=== PATIENT | female | born 1930 | race Caucasian/White ===

== ENCOUNTER 2016-12-29 02:58 | Inpatient (IN) | payer MEDICARE ==
[~2016-12-29] VITALS: Ht 162.6 cm; Wt 92.5 kg
[2016-12-29] VITALS (7 sets, daily range): BP systolic 85–125; BP diastolic 42–67; PULSE 102
[~2016-12-29 02:58] MED LIST: BISA10SU4 PR; CALC1CAP31 PO; COUM1TAB19 PO; COUM2TAB10 PO; DIGO0.12 PO; EPOG3000 IV; FERR325T3 PO; FLEEENE4 PR; KAYE1POW5 PO; KLOR1POW2 PO; LOPR1TAB7 PO; MILKSUS PO; SYNT25TA PO; TORS20TA2 PO; TYLE325T5 PO; VENO20IN IV; WARF-20 PO; WARF-58 PO; XALA0.002 OU
[2016-12-29] MEDS ORDERED: DEXTROSE 50% 50 ML SYRINGE IV PRN (03:30)
[2016-12-29] MEDS ORDERED: GLUCAGON FOR INJ 1 MG VIAL (J1610) SC PRN (03:30)
[2016-12-29] MEDS ORDERED: GLUCOSE 4 GM CHEW TABLET PO PRN (03:30)
[2016-12-29] MEDS ORDERED: METOPROLOL 5 MG/5 ML VIAL IV STA (03:37)
[2016-12-29] MEDS ORDERED: DIGOXIN INJ 0.5 MG/2 ML AMP (J1160) IV STA (03:39)
[2016-12-29] MEDS ORDERED: MORPHINE 2 MG/ML 1ML SYRINGE IV ONE (03:45)
[2016-12-29 03:55] LABS: ADD MORPHOLOGY? YES; BASO % 0.5 % (0.0-1.0); EOS # 0.2 K/mm3 (0.0-0.50); EOS % 2.3 % (0.0-3.0); LARGE UNSTAINED CELL # 0.1 K/mm3 (0.0-0.4); LARGE UNSTAINED CELL % 1.7 % (0.0-4.0); LYMPH # 1.2 K/mm3 (1.5-4.5); LYMPH % 16.4 % (24.0-44.0); MEAN CORPUSCULAR HEMOGLOBIN 35.4 pg (27.0-33.0); MEAN CORPUSCULAR HGB CONC 31.9 g/dl (32.0-36.5); MEAN CORPUSCULAR VOLUME 111.1 fl (80.0-96.0); MONO # 0.4 K/mm3 (0.0-0.8); MONO % 5.5 % (0.0-5.0); NEUTROPHILS % 73.8 % (36.0-66.0); PLATELET COUNT, AUTOMATED 191 k/mm3 (150-450); WHITE BLOOD COUNT 6.8 K/mm3 (4.0-10.0)
[2016-12-29 03:59] LABS: IONIZED CALCIUM 4.2 MG/DL (4.5-5.3)
[2016-12-29 04:03] LABS: INR 1.08
[2016-12-29 04:19] LABS: ALBUMIN 3.1 GM/DL (3.2-5.2); ALBUMIN/GLOBULIN RATIO 0.78 (1.00-1.93); BILIRUBIN,TOTAL 0.5 MG/DL (0.2-1.0); CALCIUM LEVEL 8.6 MG/DL (8.8-10.2); CREATININE FOR GFR 3.16 MG/DL (0.55-1.02); GLOMERULAR FILTRATION RATE 14.8 (>32); MAGNESIUM LEVEL 2.1 MG/DL (1.8-2.4); PHOSPHORUS LEVEL 3.4 MG/DL (2.5-4.9); POTASSIUM SERUM 4.1 MEQ/L (3.5-5.1); TOTAL PROTEIN 7.1 GM/DL (6.4-8.2)
[2016-12-29 04:28] LABS: DIGOXIN LEVEL 0.7 NG/ML (0.5-2.0)
[2016-12-29] MEDS ORDERED: TRAZ50TA4 PO (04:37)
[2016-12-29] MEDS ORDERED: KION15SU PO (04:37)
[2016-12-29] MEDS ORDERED: CINA30TA PO (04:37)
[2016-12-29] MEDS ORDERED: MIDO10TA PO (04:37)
[2016-12-29] MEDS ORDERED: CALC1CAP PO (04:37)
[2016-12-29] MEDS ORDERED: GABA-279 PO (04:37)
[2016-12-29] MEDS ORDERED: ACETAMINOPHEN 325 MG TAB PO PRN (04:45)
[2016-12-29] MEDS ORDERED: BISACODYL 10 MG SUPP PR PRN (04:45)
[2016-12-29 05:00] LABS: FREE T4 1.02 NG/DL (0.76-1.46)
[2016-12-29] MEDS: METOPROLOL TART 25 MG TABLET PO SCH ×3 (06:00→17:03)
[2016-12-29] MEDS: LEVOTHYROXINE 0.025 MG TAB (25 MCG) PO SCH (06:05)
[2016-12-29 06:10] LABS: ABG BASE EXCESS 6.9 (-2.0-2.0); ABG HCO3 30.9 MEQ/L (22.0-26.0); ABG PARTIAL PRESSURE CO2 41.7 mmHg (35.0-45.0); ABG PARTIAL PRESSURE O2 142.3 mmHg (75.0-100.0); ABG STANDARD HCO3 30.8 MEQ/L (22.0-26.0); ABG TOTAL CO2 32.2 MEQ/L (23.0-31.0); ABG pH (ARTERIAL) 7.488 UNITS (7.350-7.450)
--- NOTE | 2016-12-29 06:47 | HPEPDOC ---
General Date of Admission December 29, 2016 at 04:01 Primary Care Physician: Yasmin Vides MD [facility] Attending Physician: MARY WOODRUFF MD Chief Complaint The patient is a 86-year-old female admitted with a reason for visit of Chf Exacerbation. Source: Patient, RN notes reviewed, Old records Exam Limitations: No limitations Timing/Duration: Week(s) History of Present Illness Ms. Mccrary is an 86-year-old female who presents to [facility]'s emergency Department from [facility] with worsening renal function. Past medical history significant for end-stage renal disease on hemodialysis, diabetes mellitus, congestive heart failure, atrial fibrillation, hypothyroidism , anemia, urinary incontinence, gout, glaucoma, sensorineural hearing loss, history of Escherichia coli urinary tract infections, history of colonic polyps. Patient reports that she has had decreased urine output for the last month. She states that she attempted to get into her primary care provider's office, but was unable to do so. She denies other urinary symptoms, shortness of breath, chest pain. Reports pain in her legs and hips with the pain being more on the left than the right. She's noticed this over the last 2-3 days. Denies trauma. States that it hurts to move. States that she's never had this pain before. Admits to tingling in her fingers, feeling warm from her knees down to her ankles bilaterally, runny nose, nonproductive cough, nausea, neck pain, weight gain, weakness, and dizziness with standing. Besides positive review of systems as above all other review of systems are negative. Patient presented to [facility] with pelvic pain and oliguria. She received imaging and pain medication, but secondary to her worsening renal function she was transferred [facility]. Hospitalist service was consulted and patient was admitted for further medical management. Home Medications Scheduled Calcium Acetate (Calcium Acetate) 667 Mg Cap, 667 MG PO TID, (Reported) OBTAINED FROM EXTERNAL MED HISTORY Cinacalcet Hydrochloride (Sensipar) 30 Mg Tab, 15 MG PO DAILY, (Reported) OBTAINED FROM EXTERNAL MED HISTORY Ferrous Sulfate (Ferrous Sulfate) 325 Mg Tab, 324 MG PO DAILY, (Reported) OBTAINED FROM EXTERNAL MED HISTORY Gabapentin (Gabapentin) 100 Mg Cap, 100 MG PO TID, (Reported) OBTAINED FROM EXTERNAL MED HISTORY Latanoprost (Xalatan) 0.005 % Carol, 1 DROP OU QPM, (Reported) OBTAINED FROM EXTERNAL MED HISTORY Levothyroxine Sodium (Synthroid) 25 Mcg Tab, 25 MCG PO QAM, (Reported) OBTAINED FROM EXTERNAL MED HISTORY Midodrine HCl (Midodrine HCl) 10 Mg Tab, 10 MG PO BID, (Reported) OBTAINED FROM EXTERNAL MED HISTORY Sodium Polystyrene Sulfonate (Kionex) 15 Gm/60 Ml Irina, 15 GM PO BID, (Reported) OBTAINED FROM EXTERNAL MED HISTORY Trazodone HCl (Trazodone HCl) 50 Mg Tab, 50 MG PO QHS, (Reported) OBTAINED FROM EXTERNAL MED HISTORY Scheduled PRN Acetaminophen (Tylenol) 325 Mg Tab, 650 MG PO Q6HP PRN for PAIN OR TEMP > 101, ( Reported) Bisacodyl (Bisacodyl) 10 Mg Sup, 10 MG KS Q3DP PRN for CONSTIPATION, (Reported) Miscellaneous Medications Epoetin Wan (Epogen) 3,000 Unit/Ml Inj, 3,000 UNIT IV, (Reported) every dialysis by dialysis Iron Sucrose (Iron Oxide Sacch (Venofer) 20 Mg/Ml Inj, 100 MG IV, (Reported) on hemodialysis days x 8 more doses Allergies Coded Allergies: Cefadroxil (Verified Allergy, Intermediate, RASH, 12/29/16) Penicillins (Verified Allergy, Intermediate, RASH, 12/29/16) Ramipril (Verified Allergy, Unknown, 12/29/16) Past Medical History Medical History 1. End-stage renal disease on hemodialysis 2. Diabetes mellitus 3. Atrial fibrillation 4. Hypothyroidism 5. Gout 6. Urinary incontinence 7. Glaucoma 8. Sensorineural hearing loss 9. Anemia 10. History of Escherichia coli urinary tract infection 11. History of colonic polyps 12. Breast cancer Surgical History 1. Right mastectomy 2. Bilateral cataracts 3. Right arteriovenous fistula 4. Dilation and curettage 5. Hysterectomy 6. Colon resection 7. 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 Dyspnea, Edema, Lt Headedness Gastrointestinal: Reports: Nausea, Denies: Vomiting, Abdominal Pain, Diarrhea, Constipation, Melena, Hematochezia Genitourinary: Reports: Other Symptoms (oliguric), Denies: Dysuria, Frequency, Incontinence, Hematuria Hematologic: Denies: Bruising, Enlarged Lymph Nodes Endocrine: Reports: Other Endocrine Sx (weight gain) Musculoskeletal: Reports: Neck Pain, Denies: Back Pain, Joint Pain, Muscle Pain Neurological: Reports: Weakness, Denies: Numbness Physical Examination General Exam: Positive: Alert, Cooperative, No Acute Distress Eye Exam: Positive: PERRLA, Conjunctiva & lids normal, EOMI, Negative: Sclera icteric, Ptosis ENT Exam: Positive: Atraumatic, Mucous membr. moist/pink, Pharynx Normal, Tongue Midline, Other ENT (edentulous), Negative: Pharyngeal Edema, Nares Patent Neck Exam: Positive: Supple, Negative: JVD, thyromegaly, Lymphadenopathy Chest Exam: Positive: Clear to auscultation, Normal air movement Heart Exam: Positive: Tachycardic, Irregular Rhythm, Normal S1, Normal S2, Negative: Gallops, Murmurs, Rubs Telemetry: Positive: Atrial fibrillation, Tachycardia Abdomen Exam: Positive: Normal bowel sounds, Soft, Negative: Tenderness, Hepatospenomegaly, Mass Extremity Exam: Positive: Normal pulses (irregularly irregular), Negative: Clubbing, Cyanosis, Edema, Tenderness, Swelling Skin Exam: Positive: Nl turgor and temperature, Negative: Rash, Lesion Neuro Exam: Positive: Normal Speech, Strength at 5/5 X4 ext, Cranial Nerves 3- 12 NL Other physical findings Chest x-ray Report pending Vital Signs Vital Signs Date Time Temp Pulse Resp B/P (MAP) Pulse Ox O2 Delivery O2 Flow Rate FiO2 12/29/16 05:11 98.3 102 20 108/55 (72) 97 Room Air Height (in): 64 Weight (kg): 89 BMI (kg): 33.7 Laboratory Data Labs 24H Laboratory Tests 2 12/29/16 03:43: White Blood Count 6.8, Red Blood Count 2.96L, Hemoglobin 10.5L, Hematocrit 32.9L , Mean Corpuscular Volume 111.1H, Mean Corpuscular Hemoglobin 35.4H, Mean Corpuscular Hemoglobin Concent 31.9L, Red Cell Distribution Width 13.0, Platelet Count 191, Neutrophils (%) (Auto) 73.8H, Lymphocytes (%) (Auto) 16.4L, Monocytes (%) (Auto) 5.5H, Eosinophils (%) (Auto) 2.3, Basophils (%) (Auto) 0.5 , Neutrophils # (Auto) 5.0, Lymphocytes # (Auto) 1.2L, Monocytes # (Auto) 0.4, Eosinophils # (Auto) 0.2, Basophils # (Auto) 0.0, Large Unclassified Cells % 1.7 , Large Unclassified Cells # 0.1, Platelet Estimate NORMAL, Basophilic Stippling 1+, Macrocytosis 2+, Prothrombin Time 14.1, Prothromb Time International Ratio 1.08, Activated Partial Thromboplast Time 36.1, Anion Gap 10 , Glomerular Filtration Rate 14.8L, Estimated Mean Plasma Glucose 103, Hemoglobin A1c 5.2, Blood Urea Nitrogen 23H, Creatinine 3.16H, Sodium Level 137 , Potassium Level 4.1, Chloride Level 95L, Carbon Dioxide Level 32, Calcium Level 8.6L, Phosphorus Level 3.4, Aspartate Amino Transf (AST/SGOT) 26, Alanine Aminotransferase (ALT/SGPT) 25, Total Creatine Kinase 146, Alkaline Phosphatase 64, Total Bilirubin 0.5, Total Protein 7.1, Albumin 3.1L, Whole Blood Ionized Calcium 4.2L, Magnesium Level 2.1, Creatine Kinase MB 1.0, Creatine Kinase MB Relative Index 0.68, Troponin I 0.03, B-Type Natriuretic Peptide 866H, Albumin/ Globulin Ratio 0.78L, Thyroid Stimulating Hormone (TSH) 4.510H, Free Thyroxine 1.02, Digoxin Level 0.7 CBC/BMP Laboratory Tests 12/29/16 03:43 Red Blood Count 2.96 L, Mean Corpuscular Volume 111.1 H, Mean Corpuscular Hemoglobin 35.4 H, Mean Corpuscular Hemoglobin Concent 31.9 L, Red Cell Distribution Width 13.0, Neutrophils (%) (Auto) 73.8 H, Lymphocytes (%) (Auto) 16.4 L, Monocytes (%) (Auto) 5.5 H, Eosinophils (%) (Auto) 2.3, Basophils (%) ( Auto) 0.5, Neutrophils # (Auto) 5.0, Lymphocytes # (Auto) 1.2 L, Monocytes # ( Auto) 0.4, Eosinophils # (Auto) 0.2, Basophils # (Auto) 0.0, Calcium Level 8.6 L , Phosphorus Level 3.4, Aspartate Amino Transf (AST/SGOT) 26, Alanine Aminotransferase (ALT/SGPT) 25, Total Creatine Kinase 146, Alkaline Phosphatase 64, Total Bilirubin 0.5, Total Protein 7.1, Albumin 3.1 L Assessment/Plan Ms. Mccrary is an 86-year-old female with a past medical history significant for end-stage renal disease on hemodialysis, diabetes mellitus, congestive heart failure, atrial fibrillation, hypothyroidism, anemia, urinary incontinence, gout, glaucoma, sensorineural hearing loss, history of Escherichia coli urinary tract infections, history of colonic polyps who presents with worsening renal function in light of end-stage renal disease. Plan / VTE VTE Prophylaxis Ordered?: Yes (warfarin) Plan / Urinary Catheter Reason for insertion/continuin: Critical Pt monitoring Plan Plan End-stage renal disease Patient transferred from [facility] secondary to worsening renal function. Creatinine on today's admission. She appears improved compared to prior encounters. Nephrology is consulted. Continue phosphorus and vitamin D level. Urinary catheter is in place. Urinalysis obtained. Monitor strict I/Os. Continue patient on calcium supplementation. Continue patient on Sensipar. Congestive heart failure Obtaining ABG shows metabolic alkalosis with respiratory compensation. BMP is 866. Obtaining echocardiogram. Atrial fibrillation with rapid ventricular response Obtained EKG. Continue metoprolol. Added digoxin. Continued warfarin. Diabetes mellitus Sliding scale insulin with hypoglycemic protocol and blood glucose fingersticks before meals and at bedtime. Hypothyroidism Continue current home medication regimen. Anemia Continue patient on ferrous sulfate. Neuropathy Continue patient on gabapentin. Glaucoma Continue patient on latanoprost. Insomnia Continue patient on trazodone. Disposition Admit to: Progressive care unit Anticipated hospitalization: 2 nights Attending: Dr. Brenner Consultation: Nephrology Diet: Continue Current (2 g sodium) Activity: Continue Current (out of bed and encourage ambulation with assistance ) Diagnostics: Check Labs, Repeat Labs in AM Anticipated Discharge: Home ALY MADISON December 29, 2016 06:47
--- NOTE | 2016-12-29 07:26 | ECGEPIP ---
Stationary ECG Study 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
--- NOTE | 2016-12-29 07:33 | REP ---
Clinical: Shortness of breath. Comparison: None. Findings: A stent is identified extending from the right axillary region through the subclavian and brachiocephalic vein to the confluence of the SVC. Evidence for right axillary node dissection. Mediastinum and cardiac silhouette are grossly normal for portable technique. Left lower lobe opacity cannot be excluded. No pneumothorax. Skeletal structures intact. Impression: Postoperative changes. Cannot exclude left lower lobe opacity. Signed by Ravi Esteban MD 12/29/2016 07:24 A
[2016-12-29] MEDS ORDERED: CALCIUM ACETATE 667 MG GELCAP PO SCH (09:00)
[2016-12-29] MEDS ORDERED: DIGOXIN 0.125 MG TAB PO SCH (09:00)
[2016-12-29] MEDS: HumaLOG INSULIN (NovoLOG) PER UNIT SC SCH ×4 (09:57→20:55)
[2016-12-29] MEDS: GABAPENTIN 100 MG CAP PO SCH ×3 (09:58→20:53)
[2016-12-29] MEDS: CINACALCET 30 MG TAB (SENSIPAR) PO SCH (09:58)
[2016-12-29] MEDS: FERROUS SULFATE 325MG TAB PO SCH (09:58)
[2016-12-29] MEDS: MIDODRINE 5 MG TAB PO SCH ×2 (09:59→15:49)
[2016-12-29] MEDS: CALCIUM ACETATE 667 MG GELCAP PO SCH ×2 (15:42→17:03)
[2016-12-29] MEDS: WARFARIN SOD 3 MG TAB PO SCH (15:48)
--- NOTE | 2016-12-29 19:07 | REP ---
Clinical: Left hip pain. Technique: AP and frog lateral views of the left hip. Findings: Moderate arthritic degenerative changes include joint space narrowing, osteopenia with subchondral sclerosis and heterogeneity as well as spurring/early osteophyte formation along the acetabular roof and rim. No acute fracture dislocation. Impression: Moderate arthritic degenerative changes. Signed by Ravi Esteban MD 12/29/2016 06:59 P
--- NOTE | 2016-12-29 20:04 | CR ---
DATE OF CONSULTATION: 12/29/2016 REQUESTING PHYSICIAN: Dr. Dilcia Brenner. REASON FOR CONSULTATION: Management of end-stage renal disease and hemodialysis. CHIEF COMPLAINT: The patient was transferred from [facility] last night and there, she had presented with left leg pain. HISTORY OF PRESENT ILLNESS: Fidelina Mccrary is an 86-year-old female with past medical history of end-stage renal disease on hemodialysis every Saturday, Saturday, Saturday. She was dialyzed yesterday but after hemodialysis, she felt severe pain in the left leg. She has been feeling this pain for the last 2-3 days. The pain was almost 8/10 in intensity. It started in the left hip and was going through the left leg. She presented in the emergency room. Here, her pain was optimized but she was also found to have pulmonary congestion on the x-ray, and because of the possibility of fluid overload and history of end-stage renal disease, the patient was transferred to [facility] for further help in the management of this patient with history of end-stage renal disease which is dependent upon hemodialysis. I saw the patient today morning. The patient was not in any respiratory distress. She is just complaining of pain in the left hip. PAST MEDICAL HISTORY: Past medical history of end-stage renal disease on hemodialysis every Saturday, Saturday, Saturday, diabetes mellitus type 2, hypothyroidism, atrial fibrillation, gout secondary to end-stage renal disease, history of hearing loss, anemia secondary to end-stage renal disease, urinary tract infection (UTI) in the past, and history of breast cancer. PAST SURGICAL HISTORY: 1. Status post right mastectomy. 2. Status post bilateral cataract surgeries. 3. Status post right arm arteriovenous (AV) fistula placement. 4. Status post hysterectomy. 5. Status post colon resection. ALLERGIES: The patient is allergic to PENICILLINS, CEPHALOSPORINS, and RAMIPRIL. FAMILY HISTORY: No significant family history of end-stage renal disease requiring hemodialysis. There is positive family history of heart disease in parents. SOCIAL HISTORY: The patient denies any smoking, alcohol abuse or illicit drug abuse. She lives independently and she is able to perform the activities of daily life herself, and she walks with a walker. REVIEW OF SYSTEMS: CONSTITUTIONAL: The patient denies any fevers or chills. She does report some weakness. EYES: The patient denies any blurry vision or double vision. ENT: The patient denies any dysphagia, odynophagia or ear discharge. CARDIOVASCULAR: She denies any chest pain, palpitations. RESPIRATORY: She denies any cough, wheezing or shortness of breath. GASTROINTESTINAL (GI): She denies any pain abdomen, constipation, or diarrhea. GENITOURINARY: The patient denies any dysuria or hematuria. SKIN: She denies any rashes or ulcers. HEMATOLOGY/ONCOLOGY: The patient reports history of anemia secondary to end-stage renal disease, and she reports history of breast cancer. ENDOCRINE: She reports history of secondary hyperparathyroidism and hypothyroidism. MUSCULOSKELETAL: The patient reports left hip pain and left leg pain. 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 PHYSICAL EXAMINATION: GENERAL: The patient is awake, alert, and oriented times three, lying in the bed in no apparent distress. VITAL SIGNS: Temperature is 96.6 degrees Fahrenheit, blood pressure 120/67, pulse is 67, respiratory rate of 18, saturating 96% on room air. Intake and output: The urine output is not recorded. Weight in the bed scale is 89 kg. HEAD/NECK: Extraocular muscles intact. Pupils equal, round, and reactive to light. Mucous membranes are moist. Neck is supple. There is no jugular venous distention (JVD). CARDIOVASCULAR: S1, S2, regular rate. No murmur, rub, or gallop. RESPIRATORY: Chest is clear to auscultation bilaterally. Bilateral equal air entry. No rales or rhonchi. ABDOMEN: Soft. Positive bowel sounds. Nontender. No ascites. No organomegaly. EXTREMITIES: No clubbing or cyanosis. Pulses are 2+. There is decreased range of movement of the left leg because of pain. CENTRAL NERVOUS SYSTEM (SLAT BASKET MAKER HELPER MACHINE): No focal neurological deficit. Power is 5/5 in bilateral upper extremities and right leg. The patient is unable to move left leg because of pain. SKIN: No rashes or ulcers. LABORATORY DATA: CBC showed a WBC of 6.8, hemoglobin 10.5, platelets of 191. BMP showed sodium 137, potassium 4.1, chloride 95, bicarbonate 32, BUN 23, creatinine 3.1. Ionized calcium is 4.2. BNP is 866. IMAGING: A chest x-ray done today morning showed normal mediastinal and cardiac silhouettes. Left lower lobe opacity. Otherwise there was no evidence of pulmonary venous congestion. CURRENT INPATIENT MEDICATIONS Her medications include: - Tylenol as needed - Dulcolax as needed - PhosLo one tablet with meals - Sensipar 15 mg by mouth daily - digoxin 0.125 mg by mouth daily - ferrous sulfate 325 mg by mouth daily - Neurontin 100 mg by mouth three times a day - insulin sliding scale - levothyroxine 25 mcg by mouth daily - metoprolol 25 mg by mouth every six hours - midodrine 10 mg by mouth twice a day - morphine sulfate 2 mg intravenous (IV) one dose was given - trazodone 50 mg at bedtime - warfarin 3 mg by mouth daily ASSESSMENT: An 86-year-old female with past medical history of end-stage renal disease on hemodialysis every Saturday, Saturday, Saturday, this time comes to [facility] from [facility] because of left hip pain and shortness of breath, along with atrial fibrillation with rapid ventricular rate (RVR). PLAN: 1. End-stage renal disease on hemodialysis. The patient was dialyzed yesterday. She got ultrafiltration done. Clinically she is not in fluid overload. She is not short of breath. No urgent need of hemodialysis today. Next hemodialysis session will be on Saturday. 2. Atrial fibrillation with rapid ventricular rate. The patient was given metoprolol IV. She was started on oral metoprolol as well. Primary team has also added digoxin. Continue the warfarin as per primary team. Heart rate is controlled at this time. 3. Hypothyroidism. Continue current dose of levothyroxine as per home regimen. 4. Secondary hyperparathyroidism. Continue Sensipar 15 mg by mouth daily. 5. Chronic kidney disease, mineral bone disease. Continue PhosLo one tablet by mouth with meals for hyperphosphatemia. 6. Left hip pain. The patient is getting gabapentin. She got a dose of morphine as needed as well. 7. Chronic hypotension. Continue current dose of midodrine 10 mg by mouth twice a day, and if patient remains hypotensive, then metoprolol dose will need to be stopped. Thank you for involving us in the care of this patient. We shall be happy to follow the patient along with you tomorrow morning.
[2016-12-29] MEDS: LATANOPROST 0.005% OPHTH SOLN 2.5 ML OU SCH (20:53)
[2016-12-29] MEDS: traZODone 50 MG TAB PO SCH (20:53)
[2016-12-30] VITALS: BP 83/40
[2016-12-30 00:23] VITALS: BP 98/43
[2016-12-30 04:00] VITALS: BP 80/49
[2016-12-30 05:35] LABS: INR 1.22
[2016-12-30 05:40] LABS: BASO % 0.5 % (0.0-1.0); EOS # 0.2 K/mm3 (0.0-0.50); EOS % 3.3 % (0.0-3.0); LARGE UNSTAINED CELL # 0.2 K/mm3 (0.0-0.4); LARGE UNSTAINED CELL % 2.9 % (0.0-4.0); LYMPH # 1.6 K/mm3 (1.5-4.5); LYMPH % 23.9 % (24.0-44.0); MEAN CORPUSCULAR HEMOGLOBIN 35.9 pg (27.0-33.0); MEAN CORPUSCULAR HGB CONC 32.3 g/dl (32.0-36.5); MEAN CORPUSCULAR VOLUME 111.1 fl (80.0-96.0); MONO # 0.4 K/mm3 (0.0-0.8); MONO % 6.7 % (0.0-5.0); NEUTROPHILS # 3.7 K/mm3 (1.8-7.7); NEUTROPHILS % 62.8 % (36.0-66.0); PLATELET COUNT, AUTOMATED 190 k/mm3 (150-450); RED CELL DISTRIBUTION WIDTH 12.9 % (11.5-14.5); WHITE BLOOD COUNT 5.8 K/mm3 (4.0-10.0)
[2016-12-30 06:00] VITALS: BP 116/70
[2016-12-30 06:05] LABS: CALCIUM LEVEL 8.4 MG/DL (8.8-10.2); DIGOXIN LEVEL 0.9 NG/ML (0.5-2.0); GLOMERULAR FILTRATION RATE 8.9 (>32); POTASSIUM SERUM 4.1 MEQ/L (3.5-5.1)
[2016-12-30] MEDS: LEVOTHYROXINE 0.025 MG TAB (25 MCG) PO SCH (06:28)
[2016-12-30 06:29] LABS: CREATININE FOR GFR 4.9 MG/DL (0.55-1.02)
--- NOTE | 2016-12-30 07:13 | ECHO ---
DATE OF PROCEDURE: 12/29/2016 DATE OF : 1930 AGE: 86 GENDER: Female HEIGHT: 64 inches WEIGHT: 187 pounds BODY SURFACE AREA: 1.9 meters squared INPATIENT: Progressive care unit (PCU), room 3222 REFERRING PHYSICIAN: Dr. Adelita Nunez INDICATION: Congestive heart failure (CHF). MEASUREMENTS: 2D measurements: RV: 4.8 cm LV: 4.3 cm Septum: 1.0 cm Posterior wall: 1.0 cm Aortic root: 3.3 cm LA: 4.6 cm LVEF: 65% Doppler measurements: AV: 1.8 meters per second LVOT: 1.1 meters per second LVOT diameter: 2.1 cm MV-E: 130 Early mitral deceleration time: 187 milliseconds E prime: 8.3 E/E prime ratio: 15 PV: 0.67 meters per second Pulmonary artery acceleration time: 74 milliseconds RVSP: 71 mmHg IVC: 2.5 cm COMMENTS: Underlying atrial fibrillation with fairly controlled ventricular response. Mild to moderately dilated left atrium but normal left ventricular size. At least moderately dilated right heart chambers. LV wall thickness was normal. On real-time imaging from the parasternal and apical projections, there appeared to be an isolated septal wall motion abnormality but other left ventricular barajas were hyperkinetic. Mild mitral annular calcification with normal appearing leaflets and leaflet excursion with no posterior systolic buckling. Three equal size aortic cusps with mild to moderately thickened cusp edges but adequate cusp separation. Normal aortic root size. No separate intracardiac mass or pericardial effusion. Color flow Doppler study taken from the parasternal and apical projections showed moderate mitral and severe tricuspid but no aortic insufficiency. Guided continuous wave Doppler of her aortic valve showed a normal peak systolic velocity against LV outflow tract obstruction. Pulsed and continuous wave Doppler of her LV inflow tract taken from the apical four-chamber projection showed normal diastolic filling velocities against mitral stenosis. There was only early diastolic/passive filling as we would expect with atrial fibrillation. Her current estimated mean left atrial pressure was mildly elevated at approximately 18 mmHg. Pulsed and continuous wave Doppler of her pulmonary trunk showed a normal peak systolic velocity against RV outflow tract obstruction, but her pulmonary artery acceleration time was significantly abbreviated consistent with an elevated pulmonary vascular resistance. Guided continuous wave Doppler of her tricuspid valve allowed our estimation of her right ventricular systolic pressure (severely increased). Her inferior vena cava was prominently dilated with virtually absent respiratory collapse in keeping with an elevated central venous pressure of at least 20 mmHg - right heart failure. CONCLUSIONS: Normal left ventricular size and wall thickness with subtle septal wall motion abnormality due to right ventricular pressure overload. Preserved global left ventricular systolic function. Mild-moderately dilated left atrium with currently estimated mean left atrial pressure mildly increased. Moderately dilated right heart chambers with hypokinetic right ventricle and Doppler evidence of severe pulmonary hypertension. Moderately dilated IVC with virtually absent respiratory collapse consistent with elevated central venous pressure and right heart failure. Aortic valvular sclerosis without functional abnormality. Mitral annular calcification with moderate insufficiency. Normal appearing tricuspid valve with severe insufficiency.
[2016-12-30] MEDS: HumaLOG INSULIN (NovoLOG) PER UNIT SC SCH ×4 (07:30→21:00)
[2016-12-30] MEDS: MIDODRINE 5 MG TAB PO SCH ×2 (08:00→13:35)
[2016-12-30] MEDS: CALCIUM ACETATE 667 MG GELCAP PO SCH ×3 (08:00→17:21)
[2016-12-30] MEDS: GABAPENTIN 100 MG CAP PO SCH ×3 (08:48→23:03)
[2016-12-30] MEDS: ACETAMINOPHEN TAB 650MG DOSE (2X325MG) PO PRN ×2 (08:48→17:21)
[2016-12-30] MEDS: FERROUS SULFATE 325MG TAB PO SCH (08:48)
[2016-12-30] MEDS: CINACALCET 30 MG TAB (SENSIPAR) PO SCH (08:48)
[2016-12-30 14:00] VITALS: BP 104/59
--- NOTE | 2016-12-30 15:24 | IPN ---
DATE: 12/30/2016 SUBJECTIVE: Today, the patient complained of continued pain in her left hip but no other changes. She denies chest pain, shortness of breath. OBJECTIVE: VITAL SIGNS: Temperature 97.7, pulse 79, irregularly irregular, respiratory rate 20, blood pressure 116/70, oxygen saturation 92% on room air. GENERAL: She is an elderly female sitting in a recliner, reading the newspaper. She is in no distress. HEENT: Cranial nerves II-XII grossly intact. No appreciable elevation of CVP. CARDIOVASCULAR EXAM: S1, S2 irregularly irregular. RESPIRATORY EXAM: Clear without appreciable rales. ABDOMINAL EXAM: Obese. EXTREMITIES: No clubbing, cyanosis, or edema. She has eversion of the left foot. LABORATORY STUDIES: WBC 5.8, hemoglobin 10.0, MCV 111.1, platelet count 190. Chemistry panel: Sodium 134, potassium 4.1, chloride 94, bicarbonate 29, BUN 40, creatinine 4.9. IMAGING: The patient had hip x-rays that revealed moderate arthritic degenerative changes. ASSESSMENT AND PLAN: This is an 86-year-old female with left hip pain. Problems: 1. Left hip pain. No acute fractures but osteoarthritis on the plain film. Given that this is her primary complaint at this time, I will have her seen by orthopedic surgery. I will have her seen and evaluated by physical therapy. Please note, the patient is receiving gabapentin and morphine as needed. 2. End-stage renal disease, on hemodialysis. The patient is not fluid overloaded and not short of breath. I agree with Dr. Morales from Nephrology there is no indication for hemodialysis at this time. Depending on orthopedic surgery's recommendations, she may be able to be discharged first thing tomorrow morning and obtain outpatient hemodialysis. Please note, the patient is on PhosLo. 3. Atrial fibrillation with rapid ventricular response; it is atrial fibrillation. She has reportedly been noncompliant with Coumadin, which her international normalized ratio (INR) is subtherapeutic. She has been started on digoxin, restarted on Coumadin. At the present time, she is not requiring any further agents for rate control. 4. Hypothyroidism. She is on levothyroxine. 5. Secondary hyperparathyroidism. She is on Sensipar. 6. Chronic hypotension. The patient is on her home midodrine. 7. Iron deficiency anemia. The patient is continued on ferrous sulfate. 8. Type 2 diabetes. The patient is on sliding scale insulin. DISPOSITION: Await recommendations from orthopedic surgery and physical therapy. If cleared by both of services, she is likely to be discharged early tomorrow morning and obtain outpatient hemodialysis.
--- NOTE | 2016-12-30 16:58 | REP ---
Clinical: Pain. Technique: AP and lateral views of the left knee. Findings: Advanced tricompartmental osteoarthritic degenerative changes include joint space narrowing, subchondral sclerosis, chondrocalcinosis, osteophyte formation and suspected suprapatellar effusion. No acute fracture dislocation. Impression: Advanced tricompartmental osteoarthritic degenerative changes. Signed by Ravi Esteban MD 12/30/2016 04:50 P
[2016-12-30] MEDS: WARFARIN SOD 3 MG TAB PO SCH (17:21)
--- NOTE | 2016-12-30 17:36 | IPN ---
DATE: 12/30/2016 SUBJECTIVE: The patient was seen and examined at the bedside today morning. She denies any chest pain or shortness of breath. She is hemodynamically stable. The patient continues to complain of moderate amount of left hip pain and left leg pain. REVIEW OF SYSTEMS: The patient denies any fevers, chills, rigors, headaches, nausea, vomiting, chest pain, shortness of breath, pain abdomen, constipation, or diarrhea. She continues to complain of left hip pain as mentioned above. Rest of review of systems is negative. OBJECTIVE: VITAL SIGNS: Temperature is 97.3 degrees Fahrenheit. Blood pressure is 116/70, pulse is 80, respiratory rate of 18, saturating 92% on room air. INTAKE AND OUTPUT: Urine output is not recorded. Weight in the bed scale is 92.7 kg. PHYSICAL EXAMINATION: GENERAL: The patient is awake, alert, oriented times three, sitting in the bed in no apparent distress. HEAD/NECK: Extraocular muscles intact. Pupils equal, round, and reactive to light. Neck is supple. There is no jugular venous distention (JVD). CARDIOVASCULAR: S1, S2, regular rate. No murmur, rub, or gallop. RESPIRATORY: Chest is clear to auscultation bilaterally. Bilateral equal air entry. No rales or rhonchi. ABDOMEN: Soft. Positive bowel sounds. Nontender. No ascites. No organomegaly. EXTREMITIES: No clubbing or cyanosis. Pulses are 2+. Decreased range of movement of the left leg because of pain. CENTRAL NERVOUS SYSTEM (LICENSED SOCIAL WORKER): No focal neurological deficit. The patient is oriented times three. SKIN: No rashes or ulcers. LABORATORY DATA: CBC showed WBC 5.8, hemoglobin 10, platelets are 190. BMP shows sodium 134, potassium 4.1, chloride 94, bicarbonate 29, BUN 40, creatinine is 4.9, calcium 8.4. IMAGING: X-ray of the left hip was done yesterday, which showed moderate arthritic degenerative changes. CURRENT MEDICATIONS: The patient's current medications were all reviewed by me. I have changed the digoxin dose to 0.0625 mg by mouth every 48 hours. Metoprolol has been stopped because the patient was becoming hypotensive. There is no other change in the medications today. ASSESSMENT: An 86-year-old female with past medical history of end-stage renal disease on hemodialysis every Saturday, Saturday, Saturday, admitted this time because of left hip pain, shortness of breath, and atrial fibrillation with rapid ventricular rate (RVR). PLAN: 1. End-stage renal disease on hemodialysis. The patient's regular dialysis day is Saturday. She will be dialyzed according to her regular schedule tomorrow. No urgent need of hemodialysis today. 2. Atrial fibrillation with rapid ventricular rate. The patient was started on metoprolol and digoxin. Because of her renal failure, I have changed the digoxin dose to 0.0625 mg by mouth every 48 hours. I have stopped the metoprolol because the patient has a history of hypotension and blood pressure was dropping. 3. Chronic hypotension. Continue current dose of midodrine 10 mg by mouth twice a day. 4. Hypothyroidism. Continue home dose of levothyroxine.
[2016-12-30 22:00] VITALS: BP 92/50
[2016-12-30] MEDS: LATANOPROST 0.005% OPHTH SOLN 2.5 ML OU SCH (23:03)
[2016-12-30] MEDS: traZODone 50 MG TAB PO SCH (23:04)
[2016-12-31 03:00] VITALS: BP 110/65
[2016-12-31 06:00] VITALS: BP 132/67
[2016-12-31 06:28] LABS: BASO % 0.4 % (0.0-1.0); EOS # 0.2 K/mm3 (0.0-0.50); EOS % 3.5 % (0.0-3.0); LARGE UNSTAINED CELL # 0.2 K/mm3 (0.0-0.4); LARGE UNSTAINED CELL % 2.5 % (0.0-4.0); LYMPH # 1.2 K/mm3 (1.5-4.5); LYMPH % 20.7 % (24.0-44.0); MEAN CORPUSCULAR HEMOGLOBIN 36.2 pg (27.0-33.0); MEAN CORPUSCULAR HGB CONC 32.2 g/dl (32.0-36.5); MEAN CORPUSCULAR VOLUME 112.3 fl (80.0-96.0); MONO # 0.4 K/mm3 (0.0-0.8); MONO % 6.4 % (0.0-5.0); NEUTROPHILS # 3.9 K/mm3 (1.8-7.7); NEUTROPHILS % 66.6 % (36.0-66.0); PLATELET COUNT, AUTOMATED 198 k/mm3 (150-450); RED CELL DISTRIBUTION WIDTH 12.6 % (11.5-14.5); WHITE BLOOD COUNT 5.8 K/mm3 (4.0-10.0)
[2016-12-31 06:33] LABS: INR 1.19
[2016-12-31] MEDS: HumaLOG INSULIN (NovoLOG) PER UNIT SC SCH ×2 (06:38→11:49)
[2016-12-31 06:39] LABS: CALCIUM LEVEL 8.3 MG/DL (8.8-10.2); CREATININE FOR GFR 6.11 MG/DL (0.55-1.02); GLOMERULAR FILTRATION RATE 6.9 (>32); POTASSIUM SERUM 4.4 MEQ/L (3.5-5.1)
[2016-12-31] MEDS: LEVOTHYROXINE 0.025 MG TAB (25 MCG) PO SCH (06:39)
--- NOTE | 2016-12-31 06:56 | CR ---
DATE OF CONSULTATION: 12/30/2016 SUBJECTIVE: I was consulted by the hospitalist, Dr. Brenner, to evaluate this patient with left hip and thigh pain. Briefly, she has multiple medical comorbidities including end stage renal disease, diabetes and she was admitted by report to [facility] and ultimately transferred to [facility]. Here, has been complaining of pain ranging from the left hip into the left thigh and knee over the last four days. No antecedent trauma. No numbness or weakness in the bilateral lower extremities. No lower back pain. No saddle anesthesia. She has been treated with pain management. She was evaluated by physical therapy today and did ambulate at essentially her baseline and returned to her bed without difficulty. She denied any pain during that episode and ultimately feels like today she is somewhat improved. Complains of pain ranging from the left lateral thigh into the left knee area. No other complaints. OBJECTIVE: Awake and alert female in no acute distress. She is sitting comfortably on a chair when I enter the room. She is responsive. On focused examination of her left lower extremity the skin is intact. There are chronic apparent degenerative changes with low grade swelling about the knee joint. Distally she has 2+ dorsalis pedis and posterior tibialis pulse with sensation intact to light touch and less than 2 seconds capillary refill on all of her toes. On the extensor hallucis longus, flexor hallucis longus, tibialis anterior and tibialis posterior function is 5/5. She demonstrates a full intact knee, extension and flexion through a comfortable range of motion. The skin is intact. There are no masses appreciated. She has low grade focal tenderness about the left hip joint extending again through the left lateral thigh and into the left knee. This is a fairly vague tenderness with no one focus of clear pathology. X-rays of the left hip and the left knee show extensive age related changes of bone on bone osteoarthritis. No acute fracture or other acute finding is appreciated. ASSESSMENT: Left hip, thigh and knee pain of unclear etiology, possibly related to chronic osteoarthritis. PLAN: The patient appears to be progressing well. I would recommend that she continues with physical therapy with mobilization and weightbearing as tolerated. Recommend typical nonoperative treatment for osteoarthritis (OA) to include Tylenol and antiinflammatories if she is able to tolerate that. She may followup as an outpatient with her primary care physician or possibly with an orthopedic service for ongoing evaluation and there is no need in my view for any acute intervention. I discussed the above with Dr. Brenner and he does understand.
[2016-12-31] MEDS: GABAPENTIN 100 MG CAP PO SCH (07:00)
[2016-12-31] MEDS: FERROUS SULFATE 325MG TAB PO SCH (07:00)
[2016-12-31] MEDS: CINACALCET 30 MG TAB (SENSIPAR) PO SCH (07:00)
[2016-12-31] MEDS: CALCIUM ACETATE 667 MG GELCAP PO SCH ×2 (07:00→11:49)
[2016-12-31] MEDS: ACETAMINOPHEN TAB 650MG DOSE (2X325MG) PO PRN ×2 (07:01→11:49)
[2016-12-31] MEDS ORDERED: DIGO0.12 PO (08:10)
[2016-12-31] MEDS ORDERED: COUM1TAB19 PO (08:10)
[2016-12-31] MEDS ORDERED: MELO7.5T6 PO (08:10)
[2016-12-31] MEDS: MIDODRINE 5 MG TAB PO SCH (08:52)
[2016-12-31] MEDS ORDERED: DIGOXIN 0.0625MG PER 1/2TABLET PO SCH (09:00)
--- NOTE | 2016-12-31 13:31 | IPN ---
DATE: 12/31/2016 Mrs. Mccrary was admitted with hip pain and was felt to have congestive heart failure. She has history of end-stage renal disease, atrial fibrillation and congestive heart failure. She is dialyzed on Saturday, Saturday and Saturday schedule and her last dialysis was performed on Saturday. Her chest x-ray was felt to have congestive heart failure due to which she was transferred to [facility]. Clinically, she was not felt to be decompensated so no emergency dialysis was performed. Her outpatient dialysis was done on Saturday prior to going to the emergency room. In any event, she is feeling well and there is a plan in place for discharge to home today. She continues to have pain in her lower extremities. On physical examination, temperature 97.2 degrees Fahrenheit, heart rate 92 per minute and respiratory rate 18 per minute. Blood pressure 132/67 mmHg and oxygen saturation 97% on room air. Head is atraumatic. She is significantly hard of hearing. Neck is supple and without jugular venous distention (JVD) or thyroid enlargement. Pupils are equal and reactive to light and sclera is anicteric. Lungs sound clear to auscultation. Heart: Sounds are irregular. Abdomen: Soft and nontender. Extremities: Have no cyanosis or clubbing. Skin has no rash or ulcers. Neurologically, she is awake, alert and oriented times three. She is at about her baseline mentation. Today's labs show WBC count 5.8, hemoglobin 9.8 and hematocrit 30.4. Platelets 198. Sodium 133 and potassium 4.4. BUN 55 and creatinine 6.11. Calcium level is 8.3. Her BNP level was 866 on December 29. INR today is 1.19. PROBLEMS: 1. Congestive heart failure. Clinically, she is asymptomatic and compensated. Her BNP level was elevated, which is probably chronic. The patient is due for dialysis today and she can be dialyzed as an outpatient as her other symptoms are not significant enough to require a hospital stay. I think that she can go to outpatient dialysis clinic at her usual time later today. 2. Arthritis. She most likely has osteoarthritis in her hip. She can use acetaminophen as needed and also we will give her meloxicam 7.5 mg once a day and see how she responds. 3. Anemia. Her anemia is chronic and related to end-stage renal disease. It is stable at about baseline. No acute intervention is indicated. 4. Chronic atrial fibrillation. The patient has been on anticoagulation and will continue with Coumadin therapy. Ventricular rate is reasonably well-controlled. Her digoxin level was therapeutic at 0.9 yesterday. 5. Disposition. From a renal standpoint, the patient can be discharged to home today. She will go to outpatient dialysis clinic later this afternoon.
--- NOTE | 2016-12-31 17:49 | DSES ---
DATE OF ADMISSION: 12/29/2016 DATE OF DISCHARGE: 12/31/2016 DISCHARGE DIAGNOSIS: Left hip pain. SECONDARY DIAGNOSES: 1. Osteoarthritis. 2. End stage renal disease. 3. Atrial fibrillation with rapid ventricular response. 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 5. Chronic hypotension. 6. Iron deficiency anemia. 7. Type 2 diabetes. CONSULTS: Dr. Sears, orthopedic surgery. Dr. Morales, nephrology. HOSPITAL COURSE: The patient is an 86-year-old female who presented from [facility] for left hip pain. Patient was admitted to the medical floor. She was seen post hemodialysis. She was evaluated by nephrology who did not see any urgent need for hemodialysis. X-ray were completed, but did not reveal any fracture of the hip as well as left knee. She was seen by physical therapy and found to be at her functional baseline. She was seen by orthopedic surgery who felt her pain was related to chronic osteoarthritis and suggested NSAID therapy. I did discuss the case with Dr. Herman and we placed the patient on Tylenol and meloxicam. Also during the patient's stay she had atrial fibrillation with rapid ventricular response and she has had hypotension. She was not on a beta cheyanne, however she has been started on Digoxin every 48 hours. SUBJECTIVE: Today, the patient reports she fells well and wants to go home. She has no complaints. OBJECTIVE: Vital signs: Temperature 97.2, pulse 91, respiratory rate 18, blood pressure 132/67, Oxygen sat 97% on room air. GENERAL: She is a pleasant, very hard of hearing female sitting up on a recliner in no distress. HEENT: Cranial nerves II through XII are grossly intact. Moist mucous membranes. No elevation of CVP. CARDIOVASCULAR: Irregularly irregular but not tachycardic. RESPIRATORY: Clear. ABDOMEN: Obese. EXTREMITIES: No clubbing, cyanosis, or edema. LABORATORY STUDIES: WBC 5.8, hemoglobin 9.8, hematocrit 30.4, platelet count 198. Chemistry panel: Sodium 133, potassium 4.4, chloride 92, bicarbonate 28, BUN 55, creatinine 6.1. No microbiology. IMAGING: As outlined above. ASSESSMENT AND PLAN: This is an 86-year-old female with left hip osteoarthritis. PROBLEMS: 1. Left hip osteoarthritis. No acute fractures. Orthopedics' s help greatly appreciated. Patient is being discharged with a new prescription for meloxicam as well as Tylenol. She should consider undergoing outpatient physical therapy. She has also been receiving gabapentin. 2. End-stage renal disease, on hemodialysis. No indication for hemodialysis while in the hospital. Nephrology consultation was appreciated. She is being discharged to undergo outpatient hemodialysis today. The patient is on PhosLo. 3. Atrial fibrillation with rapid ventricular response; The patient was not compliant with Coumadin. She is being restarted at this time. Her INR is subtherapeutic. She is rate controlled with Digoxin every 48 hours. No beta blockers as she has chronic hypotension. 4. Chronic hypotension. The patient is om her home Midodrine. 5. Hypothyroidism. Patient is on Synthroid. 6. 5. Secondary hyperparathyroidism. The patient is on Sensipar. 7. Iron deficiency anemia. The patient is on ferrous sulfate and likely also an element of anemia related to end-stage renal disease. 8. Type 2 diabetes. She is on sliding scale insulin. DISPOSITION: The patient is being cleared by physical therapy. She is being discharged home to the care of her family. She is at her functional baseline. She is to follow up with her primary care provider within 7 days, follow up with regular hemodialysis and follow up with orthopedic surgery as needed. Her activity is s toelrated. Her diet is renal. She is to return to the ER if symptoms worsen and to consider outpatient PT. MEDICATIONS AT THE TIME OF DISCHARGE: - Digoxin 0.625 mg every 48 hours - meloxicam 700 mg daily - Coumadin 3 mg daily - Tylenol 650 mg every 6 hours as needed for pain - Bisacodyl 10 mg rectally as needed for constipation - calcium acetate 667 mg by mouth with meals - cinnacalcet 15 mg daily - Epogen 3000 units every dialysis - ferrous sulfate 324 mg daily - gabapentin 100 mg three times a day - iron sucrose Venofer 100 mg - Xalatan .005% one drop each eye every evening - Synthroid 25 mcg every morning - Midodrine 10 mg twice a day - Kionex 15 grams twice daily - trazodone 50 mg at bedtime Greater than 30 minutes spent organizing disposition
== END 2016-12-31 13:55 | disposition home or self-care (01) | DRG 553 ==
LOC: EDBD 02:58 → M ED 04:00 → M ED INP 04:01 → M PCU 04:35 → M MS5PR 12-30 05:03
PROVIDERS: ADMIT General Practice; ATTEND Internal Medicine
DX: M16.12 Unilateral primary osteoarthritis, left hip (principal); N18.6 End stage renal disease; E21.1 Secondary hyperparathyroidism, not elsewhere classified; I48.91 Unspecified atrial fibrillation; E03.9 Hypothyroidism, unspecified; I95.89 Other hypotension; D50.9 Iron deficiency anemia, unspecified; H40.9 Unspecified glaucoma; H90.5 Unspecified sensorineural hearing loss; R32 Unspecified urinary incontinence; G47.00 Insomnia, unspecified; I50.9 Heart failure, unspecified; G62.9 Polyneuropathy, unspecified; M10.9 Gout, unspecified; E11.9 Type 2 diabetes mellitus without complications; Z99.2 Dependence on renal dialysis; Z91.14 Patient's other noncompliance with medication regimen; Z79.899 Other long term (current) drug therapy; Z87.440 Personal history of urinary (tract) infections; Z88.0 Allergy status to penicillin; Z88.8 Allergy status to other drugs, medicaments and biological substances; Z85.3 Personal history of malignant neoplasm of breast; Z90.11 Acquired absence of right breast and nipple; Z95.828 Presence of other vascular implants and grafts; Z90.710 Acquired absence of both cervix and uterus; Z82.49 Family history of ischemic heart disease and other diseases of the circulatory system; Z88.1 Allergy status to other antibiotic agents; Z79.4 Long term (current) use of insulin

== ENCOUNTER 2019-01-28 19:32 | Inpatient (IN) | payer MEDICARE ==
[~2019-01-28] VITALS: Ht 162.6 cm; Wt 86.3 kg
[~2019-01-28 19:32] MED LIST changes: +CALC1CAP PO; +CINA30TA4 PO; -COUM2TAB10 PO; +COUM2TAB22 PO; +GABA-1171 PO; +KION15SU PO; +MELO7.5T7 PO; +MIDO10TA PO; +MILK120011 PO; -MILKSUS PO; +TRAZ-252 PO; -XALA0.002 OU; +XALA0.007 OU
[2019-01-28] MEDS ORDERED: ROPI0.253 PO (19:47)
[2019-01-28] MEDS ORDERED: renavite PO (19:47)
[2019-01-28] MEDS ORDERED: presservision PO (19:47)
[2019-01-28] MEDS ORDERED: RENV2TAB PO (19:47)
[2019-01-28] MEDS ORDERED: XALA0.007 OP (19:47)
[2019-01-28] MEDS ORDERED: ALPH0.156 OU (19:47)
[2019-01-28 20:54] LABS: BASO % 0.5 % (0.0-1.0); EOS % 0.5 % (0.0-3.0); HEMATOCRIT 31.7 % (36.0-47.0); HEMOGLOBIN 10.5 g/dl (12.0-15.5); LYMPH # 0.8 10^3/uL (1.5-4.5); MEAN CORPUSCULAR HEMOGLOBIN 36.5 pg (27.0-33.0); MEAN CORPUSCULAR HGB CONC 33.1 g/dl (32.0-36.5); MEAN CORPUSCULAR VOLUME 110.1 fl (80.0-96.0); MONO # 0.6 10^3/uL (0.0-0.8); MONO % 10.8 % (0.0-5.0); NEUTROPHILS # 4.4 10^3/uL (1.8-7.7); NEUTROPHILS % 74.9 % (36.0-66.0); PLATELET COUNT, AUTOMATED 169 10^3/uL (150-450); RED BLOOD COUNT 2.88 10^6/uL (4.00-5.40); WHITE BLOOD COUNT 5.9 10^3/uL (4.0-10.0)
[2019-01-28 21:05] LABS: INR 1.23; PROTHROMBIN TIME 15.2 SECONDS (11.8-14.0)
[2019-01-28 21:06] LABS: PARTIAL THROMBOPLASTIN TIME 39.4 SECONDS (25.0-38.4)
[2019-01-28 21:32] LABS: BILIRUBIN,DIRECT 0.3 MG/DL (0.0-0.2); BILIRUBIN,TOTAL 0.6 MG/DL (0.2-1.0); CALCIUM LEVEL 8.4 MG/DL (8.8-10.2); CREATININE FOR GFR 1.97 MG/DL (0.55-1.30); GLOMERULAR FILTRATION RATE 25.4 (>32); POTASSIUM SERUM 4.1 MEQ/L (3.5-5.1); TOTAL PROTEIN 7.4 GM/DL (6.4-8.2)
--- NOTE | 2019-01-28 22:54 | REPVR ---
EXAM: CT Abdomen and Pelvis Without Contrast EXAM DATE/TIME: 01/28/2019 9:02 PM CLINICAL HISTORY: 88 years old, female; Bloating and constipation; Prior surgery; Additional info: Abd distention, constipation TECHNIQUE: Imaging protocol: Axial computed tomography images of the abdomen and pelvis without contrast. Coronal and sagittal reformatted images were created and reviewed. Radiation optimization: All CT scans at this facility use at least one of these dose optimization techniques: automated exposure control; mA and/or kV adjustment per patient size (includes targeted exams where dose is matched to clinical indication); or iterative reconstruction. COMPARISON: CR Abdomen,Flat Plate KUB 01/28/2019 8:00 PM FINDINGS: Lungs: Linear areas of scarring versus atelectasis in bilateral lungs. Minimal in the right lung. Heart: Cardiomegaly. Liver: Liver is enlarged with irregular margins may represent cirrhosis, clinical correlation is recommended. Gallbladder and bile ducts: Status post cholecystectomy. Pancreas: Fatty atrophy of the pancreas. Spleen: Normal. No splenomegaly. Adrenals: Normal. No mass. Kidneys and ureters: Atrophic bilateral kidneys. Calcification in the left kidney. Simple cyst arising from the lower pole of the atrophic left kidney measuring approximately 2.7 cm. Stomach and bowel: Gas-filled dilated colon with fecalization at the anastomotic site in the transverse colon. Findings may represent colonic obstruction. Mild dilatation of the small bowel loops likely secondary from colonic obstruction. Appendix: No evidence of appendicitis. Intraperitoneal space: Normal. No free air. No significant fluid collection. Vasculature: Atherosclerosis. Atherosclerosis. Atrophy of the vessels. Lymph nodes: Normal. No enlarged lymph nodes. Bladder: Unremarkable as visualized. Reproductive: Status post hysterectomy. Bones/joints: Diffuse demineralization of the bones with degenerative changes. Loss of height of superior endplate of L1 secondary to Schmorl node formation. Soft tissues: Mild anasarca. IMPRESSION: Gas-filled dilated colon with fecalization at the anastomotic site in the transverse colon. Findings may represent colonic obstruction. Mild dilatation of the small bowel loops likely secondary from colonic obstruction. Electronically signed by: Karon Engel On 01/28/2019 22:53:51 PM
[2019-01-29] VITALS (7 sets, daily range): BP systolic 82–116; BP diastolic 40–58
[2019-01-29] MEDS ORDERED: MIDODRINE 5 MG TAB PO ONE (00:30)
[2019-01-29] MEDS ORDERED: ROPI0.253 PO (00:34)
[2019-01-29] MEDS ORDERED: PRESCAP PO (00:34)
[2019-01-29] MEDS ORDERED: XALA0.007 OD (00:34)
[2019-01-29] MEDS ORDERED: RENATAB5 PO (00:34)
[2019-01-29] MEDS ORDERED: RENV2TAB PO ×2 (00:34)
[2019-01-29] MEDS ORDERED: DIGO0.12 PO (00:34)
[2019-01-29] MEDS ORDERED: CYCL5TAB PO (00:35)
[2019-01-29] MEDS ORDERED: TRAM50TA2 PO (00:35)
[2019-01-29] MEDS ORDERED: NS 1,000 ML IV SCH (02:27)
--- NOTE | 2019-01-29 03:05 | HPEPDOC ---
General Date of Admission 01/29/19 Date of Service: Jan 29, 2019 Chief Complaint The patient is a 88-year-old female admitted with a reason for visit of Abd Pain. Source: Patient, Family, RN/MD, Old records Exam Limitations: Hard of hearing Severity: Moderate Associated Symptoms: Loss of appetite, Nausea History of Present Illness 88 year old female tiwh PMH of End stage renal disease on HD, Atrial fibril lation , Hypothyroidism , secondary hyperparathyroidism, Chronic hypotension, Iron deficiency anemia, Type 2 diabetes, gout, glaucoma, sensorineural hearing loss, osteoarthritis presented after HD on the advice of her senior qc technician for abdominal pain and distension. Patient says that she has not had a bowel movement for 1 week after she took a mediation. Since then she has been having gradually increasing distension of the abdomen. She says has not passed flatus also. She has associated nausea but no vomiting SHe complains of some abdominal pain which is stretching like, 3/10 in intensity, located all over the abdomen without any radiation. CT showed Gas-filled dilated colon with fecalization at the anastomotic site in the transverse colon. Findings may represent colonic obstruction. Mild dilatation of the small bowel loops likely secondary from colonic obstruction. Patient was admitted for Large bowel obstruction. Pateint was also noted to be Guaiac positive in the ED. Home Medications Scheduled Brimonidine Tartrate (Alphagan P) 0.15% 5ML Drops, 1 DROP OU BID, (Reported) Cinacalcet (Sensipar) 30 Mg Tab, 30 MG PO 2XW, (Reported) SATURDAY/SATURDAY Digoxin (Digoxin) 125 Mcg Tablet, 62.5 MCG PO Q2D, (Reported) Ferrous Sulfate (Ferrous Sulfate) 325 Mg Tab, 325 MG PO DAILY, (Reported) Folic Acid/Vit B Complex and C (Sharri-Hillary Tablet) 0.8 Mg Tablet, 1 TAB PO DAILY, (Reported) Latanoprost (Xalatan) 0.005% 2.5ML Drops, 1 DROP OD QHS, (Reported) Levothyroxine Sodium (Synthroid) 25 Mcg Tab, 25 MCG PO DAILY, (Reported) Midodrine HCl (Midodrine HCl) 10 Mg Tab, 10 MG PO TID, (Reported) Ropinirole HCl (Ropinirole HCl) 0.25 Mg Tablet, 0.25 MG PO QHS, (Reported) Sevelamer Carbonate (Renvela) 800 Mg Tablet, 2,400 MG PO WM, (Reported) Sevelamer Carbonate (Renvela) 800 Mg Tablet, 800 MG PO DAILY, (Reported) WITH SNACKS Vit A/Vit C/Vit E/Zinc/Copper (Preservision Areds Softgel) 1 Each Capsule, 2 CAP PO DAILY, (Reported) Scheduled PRN Bisacodyl (Bisacodyl) 10 Mg Sup, 10 MG [place] Q3RD PRN for CONSTIPATION, (Reported) Cyclobenzaprine HCl (Cyclobenzaprine HCl) 5 Mg Tablet, 5 MG PO TID PRN for MUSCLE SPASMS, (Reported) Tramadol HCl (Tramadol HCl) 50 Mg Tablet, 50 MG PO QHS PRN for PAIN, (Reported) Allergies Coded Allergies: Penicillins (Verified Allergy, Mild, RASH, 01/28/19) cefadroxil (Verified Allergy, Mild, RASH, 01/28/19) ramipril (Verified Allergy, Unknown, 01/28/19) Past Medical History Medical History Osteoarthritis, End stage renal disease, Atrial fibrillation , Hypothyroidism , secondary hyperparathyroidism, Chronic hypotension, Iron deficiency anemia, Type 2 diabetes, gout, glaucoma, sensorineural hearing loss,History of colonic polyps, h/o Breast cancer Surgical History colectomy, hysterectomy, cholecystectomy, right mastectomy, bilateral cataract surgery, Right arteriovenous fistula, Dilation and curettage Family History Significant Family History: Heart disease (Fther and mother) Social History * Smoker: Denies Alcohol: Denies Drugs: denies A-FIB/CHADSVASC A-FIB History Current/History of A-Fib/PAF?: Yes Current PO Anticoag Therapy: No Review of Systems Constitutional: Denies: Chills, Fever, Night Sweats Eyes: Denies: Pain, Vision change ENT: Denies: Head Aches, Ear Pain, Dysphagia Skin: Denies: Rash, Lesions, Breakdown Pulmonary: Denies: Dyspnea, Cough Cardiovascular: Denies: Chest Pain, Palpitations, Orthopnea, Paroxysmal Noc. Dyspnea, Lt Headedness Gastrointestinal: Reports: Nausea, Abdominal Pain, Constipation; Denies: Vomiting, Diarrhea, Melena, Hematochezia Hematologic: Denies: Bruising, Bleeding Excessively Musculoskeletal: Reports: Back Pain, Joint Pain; Denies: Spasms Neurological: Denies: Weakness, Numbness, Change in speech, Confusion Physical Examination General Exam: Positive: Alert, Cooperative, No Acute Distress Eye Exam: Positive: PERRLA, Conjunctiva & lids normal, EOMI; Negative: Sclera icteric ENT Exam: Positive: Atraumatic, Mucous membr. moist/pink, Pharynx Normal Neck Exam: Positive: Supple; Negative: JVD, thyromegaly Chest Exam: Positive: Clear to auscultation, Normal air movement Heart Exam: Positive: Rate Normal, Irregular Rhythm, Normal S1, Normal S2, Murmurs; Negative: Tachycardic, Bradycardic, Regular Rhythm, Gallops, Rubs Telemetry: Positive: Atrial fibrillation Abdomen Exam: Positive: BS Hypoactive, Soft, Other (No guarding or rigidity) Extremity Exam: Negative: Clubbing, Cyanosis, Edema Skin Exam: Positive: Nl turgor and temperature; Negative: Breakdown, Lesion Neuro Exam: Positive: Normal Speech, Strength at 5/5 X4 ext, Normal Tone, Sensation Intact Psych Exam: Positive: Mental status NL, Memory Intact, Oriented x 3 Vital Signs Vital Signs Date Time Temp Pulse Resp B/P (MAP) Pulse Ox O2 Delivery O2 Flow Rate FiO2 01/28/19 23:10 97.8 94 20 102/60 (74) 98 01/28/19 19:34 Room Air Laboratory Data Labs 24H Laboratory Tests 2 01/28/19 20:32: Immature Granulocyte % (Auto) 0.3, White Blood Count 5.9, Red Blood Count 2.88L, Hemoglobin 10.5L, Hematocrit 31.7L, Mean Corpuscular Volume 110.1H, Mean Corpuscular Hemoglobin 36.5H, Mean Corpuscular Hemoglobin Concent 33.1, Red Cell Distribution Width 14.0, Platelet Count 169, Neutrophils (%) (Auto) 74.9H, L ymphocytes (%) (Auto) 13.0L, Monocytes (%) (Auto) 10.8H, Eosinophils (%) (Auto) 0.5, Basophils (%) (Auto) 0.5, Neutrophils # (Auto) 4.4, Lymphocytes # (Auto) 0.8L, Monocytes # (Auto) 0.6, Eosinophils # (Auto) 0.0, Basophils # (Auto) 0.0, Nucleated Red Blood Cells % (auto) 0.0, Anion Gap 10, Glomerular Filtration Rate 25.4L, Calcium Level 8.4L, Aspartate Amino Transf (AST/SGOT) 17, Alanine Aminotransferase (ALT/SGPT) 25, Alkaline Phosphatase 119H, Total Bilirubin 0.6, Direct Bilirubin 0.3H, Total Protein 7.4, Albumin 3.0L, Albumin/Globulin Ratio 0.68L, Lipase 59L, Digoxin Level 1.0 01/28/19 20:46: Prothrombin Time 15.2H, Prothromb Time International Ratio 1.23, Activated Partial Thromboplast Time 39.4H, Lactic Acid Level 1.6 CBC/BMP Laboratory Tests 01/28/19 20:32 Red Blood Count 2.88 L, Mean Corpuscular Volume 110.1 H, Mean Corpuscular Hemoglobin 36.5 H, Mean Corpuscular Hemoglobin Concent 33.1, Red Cell Distribution Width 14.0, Neutrophils (%) (Auto) 74.9 H, Lymphocytes (%) (Auto) 13.0 L, Monocytes (%) (Auto) 10.8 H, Eosinophils (%) (Auto) 0.5, Basophils (%) (Auto) 0.5, Neutrophils # (Auto) 4.4, Lymphocytes # (Auto) 0.8 L, Monocytes # (Auto) 0.6, Eosinophils # (Auto) 0.0, Basophils # (Auto) 0.0 Assessment/Plan 88 year old female tiwh PMH of colon cancer s/p right hemicolectomy, breast cancer s/p mastectomy, chemotherapy, End stage renal disease on HD, Atrial fibrillation , Hypothyroidism , secondary hyperparathyroidism, Chronic hypotension, Iron deficiency anemia, Type 2 diabetes, gout, glaucoma, sensor ineural hearing loss, osteoarthritis presented after HD on the advice of her senior qc technician for abdominal pain and distension. Patient says that she has not had a bowel movement for 1 week after she took a mediation. Since then she has been having gradually increasing distension of the abdomen. She says has not passed flatus also. She has associated nausea but no vomiting SHe complains of some abdominal pain which is stretching like, 3/10 in intensity, located all over the abdomen without any radiation. CT showed Gas-filled dilated colon with fecalization at the anastomotic site in the transverse colon. Findings may represent colonic obstruction. Mild dilatation of the small bowel loops likely secondary from colonic obstruction. Pateint was admitted for Large bowel obstruction. Patient was also noted to be guaiac positive in ED. Colonic obstruction site seems to be in transverse colon will keep NPO, ivf, NG tube suction zofran for nausea surgical consult. Chronic hypotension continue midodrine ESRD On HD sat, sat, saturday will hold sensipar, renvela Nephrology consult A fib rate controlled with digoxin will continue will keep on tele. Hypothyroid Hold Synthroid till takes po. Iron deficiency will hold iron for now. Plan / VTE VTE Prophylaxis Ordered?: Yes ROB CHEN MD Jan 29, 2019 01:22
[2019-01-29] MEDS: LATANOPROST 0.005% OPHTH SOLN 2.5 ML OD SCH ×2 (04:58→21:00)
[2019-01-29 07:16] LABS: BASO % 0.4 % (0.0-1.0); EOS % 0.8 % (0.0-3.0); HEMATOCRIT 29.8 % (36.0-47.0); HEMOGLOBIN 9.7 g/dl (12.0-15.5); LYMPH # 0.7 10^3/uL (1.5-4.5); LYMPH % 14.7 % (24.0-44.0); MEAN CORPUSCULAR HEMOGLOBIN 36.3 pg (27.0-33.0); MEAN CORPUSCULAR HGB CONC 32.6 g/dl (32.0-36.5); MEAN CORPUSCULAR VOLUME 111.6 fl (80.0-96.0); MONO # 0.6 10^3/uL (0.0-0.8); MONO % 12.5 % (0.0-5.0); NEUTROPHILS # 3.5 10^3/uL (1.8-7.7); NEUTROPHILS % 71.2 % (36.0-66.0); PLATELET COUNT, AUTOMATED 164 10^3/uL (150-450); RED BLOOD COUNT 2.67 10^6/uL (4.00-5.40)
--- NOTE | 2019-01-29 07:36 | REP ---
Supine abdomen single AP view: There are no comparisons. There is dilatation of the ascending colon and transverse colon measuring up to 7.9 cm in the hepatic flexure. There is no small bowel dilatation. There are pelvic calcifications, likely phleboliths. There is degenerative disc disease in the lumbar spine. Impression: Nonspecific colonic distension. Transverse colon obstruction should be considered. Electronically Signed by Aric Ivy MD 01/29/2019 07:27 A
[2019-01-29 07:37] LABS: CALCIUM LEVEL 8.5 MG/DL (8.8-10.2); CREATININE FOR GFR 2.46 MG/DL (0.55-1.30); GLOMERULAR FILTRATION RATE 19.7 (>32)
[2019-01-29] MEDS: BRIMONIDINE 0.15% OPHTH SOLN 5 ML OU SCH ×2 (09:01→21:00)
[2019-01-29] MEDS: HEPARIN SOD (PORCINE) 5000 UNITS/ML VIAL SC SCH ×2 (09:02→21:00)
[2019-01-29] MEDS: MIDODRINE 5 MG TAB PO SCH ×3 (09:02→15:11)
[2019-01-29] MEDS: FLEET ENEMA PR ONE (10:09)
--- NOTE | 2019-01-29 11:15 | IPNPDOC ---
Date Seen The patient was seen on 01/29/19. Progress Note SUBJECTIVE: Ms. Mccrary is a 88 year old female seen on bedside rounds this morning. She has an NG tube placed and states that she is comfortable. She reports no pain overnight. She reports some RLQ discomfort and distention in her stomach that she describes as a stretching sensation that is diffuse without radiation. She reports some dizziness and feelings of weakness. She denies cp, sob nausea, vomiting, fevers, chills, sweating, and headaches. OBJECTIVE PHYSICAL EXAMINATION: VITAL SIGNS: Please see below. GENERAL: Patient is seen laying in bed with NG tube placed. She states that she is comfortable and in no acute distress. She is awake, alert, oriented speaking in complete sentences. Hard of hearing in both ears. HEENT: Moist mucous membranes, EOMI, No JVD appreciated CARDIOVASCULAR: S1 S2 irregular rhythm, no murmurs, gallops, rubs appreciated RESPIRATORY: Clear to auscultation bilaterally, no wheezing, rales or rhonchi appreciated ABDOMINAL: Bowel sounds hypoactive in all 4 quadrants. Tenderness to light palpation in the RLQ. Abdomen distended, soft. No rebound, rigidity, or guarding., no hepatosplenomegaly or masses appreciated. EXTREMITIES: No clubbing cyanosis or edema PSYCHOLOGICAL: Appropriate affect LABORATORY DATA, IMAGING STUDIES, MICROBIOLOGY: Please see below. IMAGING: - Abdomen/Pelvis X-ray: Nonspecific colonic distension. Transverse colon obstruction should be considered. - Abdomen/Pelvis CT: Gas-filled dilated colon with fecalization at the anastomot ic site in the transverse colon. Findings may represent colonic obstruction. Mild dilatation of the small bowel loops likely secondary from colonic obstruction. DVT prophylaxis ordered?: Heparin ASSESSMENT AND PLAN: This is a 88 year old female that presented with abdominal pain and distention and found to have probable fecal impaction PROBLEMS: 1. Colonic obstruction - CT showed Gas-filled dilated colon with fecalization at the anastomotic site in the transverse colon. - will keep NPO, IVF, NG tube suction - FOBT positive - zofran for nausea - Surgery consulted, suspected fecal impaction - Will do a trial of enemas and see if there is improvement 2. Chronic hypotension - continue midodrine 3. ESRD - On HD sat, sat, saturday - will hold sensipar, renvela - Nephrology consult 4. A fib - rate controlled with digoxin will continue - will keep on telemetry 5. Hypothyroid - Hold Synthroid till takes po. 6. Iron deficiency - will hold iron for now. DISPOSITION: Patient has an NG tube placed and is comfortable, denies significant abdominal pain. CT of the abdomen and pelvis showed gas-filled dilated colon with fecalization at the anastomotic site in the transverse colon. Will keep NPO, IVF, NG tube suction. FOBT positive. Surgery was consulted, suspect fecal impaction. Will do a trial of enemas and see if there is improvement. Patient is on HD schedule Saturday, Saturday, Saturday. Nephrology consulted. [facility] Sign[facility]/I&O Vital Signs Date Time Temp Pulse Resp B/P (MAP) Pulse Ox O2 Delivery O2 Flow Rate FiO2 01/29/19 08:00 98.5 96 18 88/40 (56) 97 01/28/19 19:34 Room Air Laboratory Data 24H LABS Laboratory Tests 2 01/28/19 20:32: Immature Granulocyte % (Auto) 0.3, White Blood Count 5.9, Red Blood Count 2.88L, Hemoglobin 10.5L, Hematocrit 31.7L, Mean Corpuscular Volume 110.1H, Mean Corpuscular Hemoglobin 36.5H, Mean Corpuscular Hemoglobin Concent 33.1, Red Cell Distribution Width 14.0, Platelet Count 169, Neutrophils (%) (Auto) 74.9H, Lymphocytes (%) (Auto) 13.0L, Monocytes (%) (Auto) 10.8H, Eosinophils (%) (Auto) 0.5, Basophils (%) (Auto) 0.5, Neutrophils # (Auto) 4.4, Lymphocytes # (Auto) 0.8L, Monocytes # (Auto) 0.6, Eosinophils # (Auto) 0.0, Basophils # (Auto) 0.0, Nucleated Red Blood Cells % (auto) 0.0, Anion Gap 10, Glomerular Filtration Rate 25.4L, Calcium Level 8.4L, Aspartate Amino Transf (AST/SGOT) 17, Alanine Aminotransferase (ALT/SGPT) 25, Alkaline Phosphatase 119H, Total Bilirubin 0.6, Direct Bilirubin 0.3H, Total Protein 7.4, Albumin 3.0L, Albumin/Globulin Ratio 0.68L, Lipase 59L, Digoxin Level 1.0 01/28/19 20:46: Prothrombin Time 15.2H, Prothromb Time International Ratio 1.23, Activated Partial Thromboplast Time 39.4H, Lactic Acid Level 1.6 01/29/19 06:43: Immature Granulocyte % (Auto) 0.4, White Blood Count 5.0, Red Blood Count 2.67L, Hemoglobin 9.7L, Hematocrit 29.8L, Mean Corpuscular Volume 111.6H, Mean Corpuscular Hemoglobin 36.3H, Mean Corpuscular Hemoglobin Concent 32.6, Red Cell Distribution Width 14.2, Platelet Count 164, Neutrophils (%) (Auto) 71.2H, Lymphocytes (%) (Auto) 14.7L, Monocytes (%) (Auto) 12.5H, Eosinophils (%) (Auto) 0.8, Basophils (%) (Auto) 0.4, Neutrophils # (Auto) 3.5, Lymphocytes # (Auto) 0.7L, Monocytes # (Auto) 0.6, Eosinophils # (Auto) 0.0, Basophils # (Auto) 0.0, Nucleated Red Blood Cells % (auto) 0.0, Anion Gap 12, Glomerular Filtration Rate 19.7L, Calcium Level 8.5L, Blood Urea Nitrogen 25H, Creatinine 2.46H, Sodium Level 133L, Potassium Level 4.0, Chloride Level 96L, Carbon Dioxide Level 25 CBC/BMP Laboratory Tests 01/28/19 20:32 Red Blood Count 2.88 L, Mean Corpuscular Volume 110.1 H, Mean Corpuscular Hemoglobin 36.5 H, Mean Corpuscular Hemoglobin Concent 33.1, Red Cell Distribution Width 14.0, Neutrophils (%) (Auto) 74.9 H, Lymphocytes (%) (Auto) 13.0 L, Monocytes (%) (Auto) 10.8 H, Eosinophils (%) (Auto) 0.5, Basophils (%) (Auto) 0.5, Neutrophils # (Auto) 4.4, Lymphocytes # (Auto) 0.8 L, Monocytes # (Auto) 0.6, Eosinophils # (Auto) 0.0, Basophils # (Auto) 0.0 01/29/19 06:43 Red Blood Count 2.67 L, Mean Corpuscular Volume 111.6 H, Mean Corpuscular Hemoglobin 36.3 H, Mean Corpuscular Hemoglobin Concent 32.6, Red Cell Distribution Width 14.2, Neutrophils (%) (Auto) 71.2 H, Lymphocytes (%) (Auto) 14.7 L, Monocytes (%) (Auto) 12.5 H, Eosinophils (%) (Auto) 0.8, Basophils (%) (Auto) 0.4, Neutrophils # (Auto) 3.5, Lymphocytes # (Auto) 0.7 L, Monocytes # (Auto) 0.6, Eosinophils # (Auto) 0.0, Basophils # (Auto) 0.0, Calcium Level 8.5 L GME ATTESTATION GME ATTESTATION My faculty preceptor for this patient encounter was physically present during the encounter and was fully available. All aspects of the patient interview, examination, medical decision making process, and medical care plan development were reviewed and approved by the faculty preceptor. The faculty preceptor is aware and concurs with the plan as stated in the body of this note and will attest to such by his/her cosignature. ATTENDING NOTE I, Romulo Leigh, have independently examined this patient and performed my own physical exam, as well as reviewed the documentation and edited where necessary. I have discussed in detail with the resident / student the findings and plan of treatment as documented by the resident / student and edited their note. I agree with their findings and treatment plan and have edited their documentation. I will continue to follow the patient during this hospital stay. JAMILAH MCGRATH OMS-3 Jan 29, 2019 11:15 MAGED SEE DO Jan 29, 2019 12:54 ROMULO LEIGH MD Jan 29, 2019 14:42
[2019-01-29] MEDS: D5W/0.9% SODIUM CHLORIDE 1,000 ML IV SCH (12:31)
[2019-01-29] MEDS ORDERED: DARBEPOETIN 100 MCG/0.5 ML *DIALYSIS* SYRINGE (J0882) IV SCH (17:30)
--- NOTE | 2019-01-29 17:50 | CR ---
DATE OF CONSULTATION: 01/29/2019 REQUESTING PHYSICIAN: Dr. Meghana Guan CONSULTING PHYSICIAN: Dr. Morales. REASON FOR CONSULTATION: Management of end-stage renal disease on hemodialysis. CHIEF COMPLAINT: The patient presented to the hospital with abdominal pain. HISTORY OF PRESENT ILLNESS: Fidelina Mccrary is an 88-year-old female with past medical history of end-stage renal disease, on hemodialysis every Saturday, Saturday, Saturday, very hfnh-[id number], history of atrial fibrillation, chronic hypotension, diabetes mellitus, type 2, multiple other comorbidities as mentioned below. She presented to the hospital with abdominal pain. She has not had a bowel movement for about a week. Because of the worsening distension of the abdomen, she was advised by nephrology office to report to the emergency room. Further imaging done in the emergency room showed that the patient had gas-filled dilated colon with fecalization at the anastomotic site, indicating colonic obstruction. The patient was admitted under the hospitalist service. Nephrology service was called for further help in the management of end-stage renal disease on hemodialysis. I saw and evaluated the patient at the bedside. She is very [id number]. She is unable to provide any reliable history. Most of the history was obtained from the patient's chart and from the medical team. PAST MEDICAL HISTORY: 1. History of end-stage renal disease requiring hemodialysis. 2. Hypertension. 3. Diabetes mellitus, type 2. 4. Depression. 5. Atrial fibrillation. 6. Congestive heart failure. 7. Anemia and end-stage renal disease. 8. Overactive bladder. 9. Gout. 10. Angina. 11. History of recurrent urinary tract infections (UTIs). 12. History of for breast cancer in the past. 13. Sensorineural hearing loss. 14. Osteoarthritis. PAST SURGICAL HISTORY: 1. Status post a right mastectomy. 2. Status post cholecystectomy. 3. Status post total hysterectomy. 4. Status post cataract removal. 5. Status post right hemicolectomy with ileotransverse anastomosis. ALLERGIES: The patient is allergic to PENICILLIN, RAMIPRIL, and CEPHALOSPORINS. FAMILY HISTORY: No significant family history of end-stage renal disease requiring hemodialysis. SOCIAL HISTORY: The patient is . She lives alone. There is no history of smoking, illicit drug abuse, or alcohol abuse. REVIEW OF SYSTEMS: The patient was lying in the bed. She was sleepy. She was unable to provide any reliable review of systems. She is very yefz-bo-pydanug; however, the patient does have a moderate amount of abdominal pain, and she had a nasogastric tube (NGT) which was attached to suctioning. PHYSICAL EXAMINATION: GENERAL: The patient is lying in bed, drowsy and sleepy. Constant NGT suctioning going on. VITAL SIGNS: Temperature is 97 degrees Fahrenheit, blood pressure 102/46, pulse is 80, respiratory rate of 18, saturating 97% on room air. HEAD AND NECK: Pupils are equally round and reactive to light. The patient is very kkbq-ed-nhbakjo. Mucous membranes are moist. She has an NGT. NGT is attached to suctioning. CARDIOVASCULAR: S1, S2, regular rate. Edema 1+ of the bilateral lower extremities. RESPIRATORY: Chest is clear to auscultation bilaterally. Bilateral equal air entry. No rales or rhonchi. ABDOMEN: Soft. Decreased bowel sounds. Moderate amount of tenderness on deep palpation. Her diaper had stools in it. MUSCULOSKELETAL: No clubbing or cyanosis. Pulses are 2+. CENTRAL NERVOUS SYSTEM: The patient is drowsy and very utfq-[id number]. SKIN: No rashes or ulcers. LABORATORY REVIEW: CBC showed a WBC of 5, hemoglobin 9.7, platelets are 164. BMP showed sodium 133, potassium 4, chloride 96, bicarbonate 25, BUN 25, creatinine is 2.4, calcium is 8.5. IMAGING STUDIES: CT scan of the abdomen and pelvis was done yesterday, which showed gas-filled dilated colon with fecalization of the anastomotic site in the transverse colon, which may represent colonic obstruction. CURRENT INPATIENT MEDICATIONS: The patient was getting normal saline at 75 mL an hour. I have changed it to D5 normal saline at 60 mL an hour. She is on digoxin 0.625 mg every other day. She is on heparin subcutaneous. She is on midodrine 10 mg by mouth three times a day, and she was given one Fleet enema per rectal today morning. ASSESSMENT: An 88-year-old female with past medical history of end-stage renal disease, on hemodialysis, history of right hemicolectomy in the past, atrial fibrillation, hypothyroidism, chronic hypotension, admitted at this time because of intestinal obstruction. PLAN: 1. End-stage renal disease, on hemodialysis. The patient's regular dialysis days are Saturday, Saturday, Saturday. She was dialyzed yesterday. Next hemodialysis will be tomorrow morning as per her regular schedule. She has a well-functioning left upper arm arteriovenous (AV) fistula. 2. Colonic obstruction. Patient has history of right hemicolectomy. She was given a Fleet enema today morning for possible fecal impaction. Sometimes Renvela tablets can also be associated with fecal impactions and intestinal obstruction. Avoid further use of Renvela phosphorus binders at this point. Continue NGT suctioning. IV fluid has been changed to D5 normal saline at 60 mL an hour. 3. Anemia and end-stage renal disease. Hemoglobin is 9.75. I will give the patient a dose of Aranesp with dialysis tomorrow. 4. Secondary hyperparathyroidism. The patient gets Sensipar 30 mg by mouth two times a week; however, it is being held at this point because of intestinal obstruction. 5. Atrial fibrillation. Heart rate is controlled. Continue current dose of digoxin 62.5 mcg by mouth every other day. 6. Hypothyroidism. The patient is on levothyroxine 25 mcg by mouth daily. I am going to start the patient on levothyroxine home dose. 7. Chronic kidney disease, mineral bone disease. The patient gets Renvela 2.4 grams with meals and 800 mg with snacks. I would avoid giving this Renvela at this time because of intestinal obstruction. 8. Chronic hypotension. Continue home dose of midodrine Thank you for involving me in the care of this patient. I shall be happy to follow the patient along with you tomorrow morning.
[2019-01-30 06:00] VITALS: BP 96/51
[2019-01-30] MEDS: FLEET ENEMA PR ONE (06:00)
[2019-01-30] MEDS: MIDODRINE 5 MG TAB PO SCH ×3 (07:03→17:05)
[2019-01-30] MEDS: HEPARIN SOD (PORCINE) 5000 UNITS/ML VIAL SC SCH ×2 (07:03→22:31)
[2019-01-30] MEDS: LATANOPROST 0.005% OPHTH SOLN 2.5 ML OD SCH (07:04)
[2019-01-30] MEDS: BRIMONIDINE 0.15% OPHTH SOLN 5 ML OU SCH ×2 (07:04→21:00)
[2019-01-30 07:05] LABS: BASO % 0.4 % (0.0-1.0); EOS # 0.1 10^3/uL (0.0-0.50); EOS % 1.5 % (0.0-3.0); HEMATOCRIT 28.5 % (36.0-47.0); HEMOGLOBIN 9.4 g/dl (12.0-15.5); LYMPH # 0.7 10^3/uL (1.5-4.5); LYMPH % 14.6 % (24.0-44.0); MEAN CORPUSCULAR HEMOGLOBIN 36.7 pg (27.0-33.0); MEAN CORPUSCULAR VOLUME 111.3 fl (80.0-96.0); MONO # 0.6 10^3/uL (0.0-0.8); NEUTROPHILS # 3.3 10^3/uL (1.8-7.7); NEUTROPHILS % 70.1 % (36.0-66.0); PLATELET COUNT, AUTOMATED 160 10^3/uL (150-450); RED BLOOD COUNT 2.56 10^6/uL (4.00-5.40); WHITE BLOOD COUNT 4.7 10^3/uL (4.0-10.0)
[2019-01-30 07:57] LABS: CALCIUM LEVEL 8.1 MG/DL (8.8-10.2); CREATININE FOR GFR 3.58 MG/DL (0.55-1.30); GLOMERULAR FILTRATION RATE 12.8 (>32); POTASSIUM SERUM 3.5 MEQ/L (3.5-5.1)
[2019-01-30] MEDS ORDERED: NS 1,000 ML IV SCH (08:30)
[2019-01-30] MEDS: LEVOTHYROXINE 100 MCG (0.1MG) VIAL IV SCH (08:32)
[2019-01-30] MEDS: DIGOXIN 0.0625MG PER 1/2TABLET PO SCH (08:32)
[2019-01-30] MEDS: D5W/0.9% SODIUM CHLORIDE 1,000 ML IV SCH (08:33)
[2019-01-30] MEDS ORDERED: HEPARIN 1,000 UNITS/ML 10ML VIAL (FOR RADIOLOGY& DIALYSIS ONLY) IV ONE (10:30)
--- NOTE | 2019-01-30 11:05 | IPNPDOC ---
Text Note Date of Service The patient was seen on 01/30/19. NOTE SUBJECTIVE: Ms. Mccrary is a 88 year old female seen on bedside rounds this [facility]. She has an NG tube place with some brown gastric secretions in the tubing. She is being ready to be transported to dialysis. and states that she is comfortable. She reports no pain overnight. She admits to some feelings of weakness. She denies cp, sob nausea, vomiting, fevers, chills, sweating, and headaches. OBJECTIVE PHYSICAL EXAMINATION: VITAL SIGNS: Please see below. GENERAL: Patient is seen laying in bed with NG tube place, clamped, some dark brown secretions in tubing. She states that she is comfortable and in no acute distress. She is awake, alert, oriented speaking in complete sentences. Hard of hearing in both ears. HEENT: Moist mucous membranes, EOMI, No JVD appreciated CARDIOVASCULAR: S1 S2 irregular rhythm, no murmurs, gallops, rubs appreciated RESPIRATORY: Clear to auscultation bilaterally, no wheezing, rales or rhonchi appreciated ABDOMINAL: Bowel sounds hypoactive in all 4 quadrants. There is no more tenderness to palpation. Abdomen slightly distended, soft. No rebound, rigidity, or guarding., no hepatosplenomegaly or masses appreciated. EXTREMITIES: No clubbing cyanosis or edema PSYCHOLOGICAL: Appropriate affect LABORATORY DATA, IMAGING STUDIES, MICROBIOLOGY: Please see below. IMAGING: - Abdomen/Pelvis X-ray: Nonspecific colonic distension. Transverse colon obstruction should be considered. - Abdomen/Pelvis CT: Gas-filled dilated colon with fecalization at the anastomotic site in the transverse colon. Findings may represent colonic obstruction. Mild dilatation of the small bowel loops likely secondary from colonic obstruction. DVT prophylaxis ordered?: Heparin ASSESSMENT AND PLAN: This is a 88 year old female that presented with abdominal pain and distention and found to have probable fecal impaction PROBLEMS: 1. Colonic obstruction - CT showed Gas-filled dilated colon with fecalization at the anastomotic site in the transverse colon. - will keep NPO, IVF, NG tube suction -She is getting a barium enema today - FOBT positive - zofran for nausea - Surgery consulted, suspected fecal impaction - S/p enema yesterday with 3 BM - She may have rectal mass vs hemorrhoids that likely warrants further outpt workup 2. Chronic hypotension - continue midodrine 3. ESRD - On HD sat, sat, saturday - will hold sensipar, renvela - Nephrology consult - Dialysis today 4. A fib - rate controlled with digoxin will continue - will keep on telemetry - currently no on anticoagulation or ASA; will have outpatient f/u with provider 5. Hypothyroid - Synthroid was restarted 6. Iron deficiency - will hold iron for now. 7. Hyponatremia -Na 135, increased rate of IVF, monitor DISPOSITION: Patient has an NG tube placed which is actually clamped one exam and is comfortable, going for dialysis today, NG is actually to be d/c per general surgery today. She is getting a barium enema today as well. She denies any abdominal pain this morning. CT of the abdomen and pelvis showed gas-filled dilated colon with fecalization at the anastomotic site in the transverse colon. Will keep NPO, IVF. FOBT positive. Surgery was consulted, suspect fecal impac tion. VS,Fishbone, I+O VS, Fishbone, I+O Laboratory Tests 01/30/19 06:44 Red Blood Count 2.56 L, Mean Corpuscular Volume 111.3 H, Mean Corpuscular Hemoglobin 36.7 H, Mean Corpuscular Hemoglobin Concent 33.0, Red Cell Distribution Width 14.0, Neutrophils (%) (Auto) 70.1 H, Lymphocytes (%) (Auto) 14.6 L, Monocytes (%) (Auto) 13.0 H, Eosinophils (%) (Auto) 1.5, Basophils (%) (Auto) 0.4, Neutrophils # (Auto) 3.3, Lymphocytes # (Auto) 0.7 L, Monocytes # ( Auto) 0.6, Eosinophils # (Auto) 0.1, Basophils # (Auto) 0.0, Calcium Level 8.1 L Vital Signs Date Time Temp Pulse Resp B/P (MAP) Pulse Ox O2 Delivery O2 Flow Rate FiO2 01/30/19 08:32 85 01/30/19 06:00 98.5 16 96/51 (66) 93 01/28/19 19:34 Room Air l I&O- Last 24 Hours up to 6 AM 01/30/19 06:00 Intake Total 1030 ml Output Total 100 ml Balance 930 ml GME ATTESTATION GME ATTESTATION My faculty preceptor for this patient encounter was physically present during the encounter and was fully available. All aspects of the patient interview, examination, medical decision making process, and medical care plan development were reviewed and approved by the faculty preceptor. The faculty preceptor is aware and concurs with the plan as stated in the body of this note and will atte st to such by his/her cosignature. ATTENDING NOTE I, Romulo Lantigua, have independently examined this patient and performed my own physical exam, as well as reviewed the documentation and edited where necessary. I have discussed in detail with the resident / student the findings and plan of treatment as documented by the resident / student and edited their note. I agree with their findings and treatment plan and have edited their documentation. I will continue to follow the patient during this hospital stay. MAGED SEE DO Jan 30, 2019 11:05 ROMULO LANTIGUA MD Jan 30, 2019 12:35
[2019-01-30] MEDS ORDERED: GASTROGRAFIN SOLUTION 30ML (Q9963) As Ordered ONE (11:15)
[2019-01-30 14:00] VITALS: BP 93/48
--- NOTE | 2019-01-30 19:26 | IPN ---
DATE: 01/30/2019 SUBJECTIVE: Patient was seen and examined the bedside today morning during hemodialysis. She is tolerating the hemodialysis procedure well. She is much more awake and alert today. She still has an nasogastric (NG) tube. She has not started eating yet. Patient reports that she had bowel movements yesterday. Abdominal distension is improving. OBJECTIVE: VITAL SIGNS: Temperature is 98.5 degrees Fahrenheit, blood pressure 96/51, pulse is 87, respiratory rate of 16, saturating 93% on room air. INTAKE AND OUTPUT: There is no urine output recorded. Gastric drainage was total 100 mL yesterday. Weight in the bed scale is 82.6 kg. PHYSICAL EXAMINATION: GENERAL: Patient is awake, alert, oriented times three, lying laying in bed getting hemodialysis done. HEAD AND NECK EXAM: Patient is hard of hearing. Otherwise she is atraumatic, normocephalic. Mucous membranes are moist. Neck is supple. She has no jugular venous distention (JVD). CARDIOVASCULAR: S1, S2. Regular rate. 1+ edema of the bilateral lower extremities. Patient has dilated superficial veins on anterior chest wall. RESPIRATORY: Chest is clear to auscultation bilaterally. Bilateral equal air entry. No rales or rhonchi. ABDOMEN: Soft, obese, positive bowel sounds. Nontender. No organomegaly. MUSCULOSKELETAL: Patient has a dressing on the left leg. CENTRAL NERVOUS SYSTEM (GIFTS OFFICER): No focal deficit apart from out of hearing. Patient is able to move all extremities and she is able to communicate. ATRIOVENTRICULAR (AV) ACCESS: She has a left upper arm AV graft, which is being used for dialysis. LABORATORY REVIEW: Complete blood count (CBC) showed a WBC of 4.7, hemoglobin 9.4, platelets of 160. Basic metabolic panel (BMP) showed sodium of 135, potassium 3.5, chloride 98, bicarbonate 26, BUN 38, creatinine is 3.5, calcium 8.1. CURRENT INPATIENT MEDICATIONS: Patient's medications were all reviewed by me. She continues to be on intravenous (IV) fluid. She was restarted on levothyroxine 12.5 mcg IV daily. No other change in the medications today as compared with yesterday. ASSESSMENT AND PLAN: 1. End-stage renal disease on hemodialysis. Today is patient's regular day of dialysis. She is being dialyzed according to her regular schedule. I will try to remove about 1.5 kg of fluid as tolerated by her blood pressure. 2. Colonic obstruction. Patient had two bowel movements yesterday and one bowel movements so far today since overnight. Her nasogastric tube (NGT) is clamped. Avoid use of Renvela at this point. 3. Anemia secondary to end-stage renal disease. Patient will get a lower dose of Aranesp 200 mcg IV with dialysis today. 4. Atrial fibrillation. Continue home dose of digoxin 62.5 mcg by mouth every other day. 5. Secondary hyperparathyroidism. Sensipar 30 mg by mouth twice a week will be restarted once patient starts eating her regular diet. 6. Hypothyroidism. Patient is getting levothyroxine 12.5 mcg IV daily. Once she starts eating diet, then it can be switched back to levothyroxine 25 mcg by mouth daily. 7. Chronic kidney disease/mineral bone disease. Avoid use of Renvela because of recent colonic obstruction and constipation. 8.. Chronic hypotension. Continue current dose of midodrine.
[2019-01-30 22:00] VITALS: BP 88/38
[2019-01-30] MEDS ORDERED: ACETAMINOPHEN 500 MG TAB PO PRN (22:30)
[2019-01-31] MEDS: D5W/0.9% SODIUM CHLORIDE 1,000 ML IV SCH (05:46)
[2019-01-31 06:00] VITALS: BP 89/30
[2019-01-31 06:26] LABS: BASO % 0.5 % (0.0-1.0); EOS # 0.1 10^3/uL (0.0-0.50); EOS % 2.3 % (0.0-3.0); HEMATOCRIT 29.5 % (36.0-47.0); HEMOGLOBIN 9.7 g/dl (12.0-15.5); LYMPH # 0.8 10^3/uL (1.5-4.5); MEAN CORPUSCULAR HEMOGLOBIN 36.9 pg (27.0-33.0); MEAN CORPUSCULAR HGB CONC 32.9 g/dl (32.0-36.5); MEAN CORPUSCULAR VOLUME 112.2 fl (80.0-96.0); MONO # 0.5 10^3/uL (0.0-0.8); MONO % 12.8 % (0.0-5.0); NEUTROPHILS # 2.5 10^3/uL (1.8-7.7); NEUTROPHILS % 63.1 % (36.0-66.0); PLATELET COUNT, AUTOMATED 171 10^3/uL (150-450); RED BLOOD COUNT 2.63 10^6/uL (4.00-5.40); WHITE BLOOD COUNT 3.9 10^3/uL (4.0-10.0)
[2019-01-31 06:53] LABS: CALCIUM LEVEL 8.2 MG/DL (8.8-10.2); CREATININE FOR GFR 2.48 MG/DL (0.55-1.30); GLOMERULAR FILTRATION RATE 19.5 (>32); POTASSIUM SERUM 3.7 MEQ/L (3.5-5.1)
[2019-01-31 08:30] VITALS: BP 92/42
--- NOTE | 2019-01-31 08:42 | IPNPDOC ---
Text Note Date of Service The patient was seen on 01/31/19. NOTE No acute events overnight. She had the barium enema yesterday and is still ross ving BMs. No problems with nausea or emesis, but hher abdomen is still distended. Denies abd pains. Tolerating clq diet. VSSAF NAD abd - soft, distended, non tender, no rebound or guarding labs - below A) 88y/o female with abd distention and colonic ileus vs. partial obstruction P) clear liquid diet IVF IS ambulate monitor output start on a bowel regimen Skip Banuelos DO VS,Fishbone, I+O VS, Fishbone, I+O Laboratory Tests 01/31/19 06:16 Red Blood Count 2.63 L, Mean Corpuscular Volume 112.2 H, Mean Corpuscular Hemoglobin 36.9 H, Mean Corpuscular Hemoglobin Concent 32.9, Red Cell Distribution Width 14.2, Neutrophils (%) (Auto) 63.1, Lymphocytes (%) (Auto) 21.0 L, Monocytes (%) (Auto) 12.8 H, Eosinophils (%) (Auto) 2.3, Basophils (%) (Auto) 0.5, Neutrophils # (Auto) 2.5, Lymphocytes # (Auto) 0.8 L, Monocytes # (Auto) 0.5, Eosinophils # (Auto) 0.1, Basophils # (Auto) 0.0, Calcium Level 8.2 L Vital Signs Date Time Temp Pulse Resp B/P (MAP) Pulse Ox O2 Delivery O2 Flow Rate FiO2 01/31/19 08:30 98.2 90 18 92/42 (59) 95 01/28/19 19:34 Room Air I&O- Last 24 Hours up to 6 AM 01/31/19 06:00 Intake Total 1290 ml Output Total 1000 ml Balance 290 ml PAWEL BANUELOS DO Jan 31, 2019 08:42
[2019-01-31] MEDS: LEVOTHYROXINE 100 MCG (0.1MG) VIAL IV SCH (08:46)
[2019-01-31] MEDS: HEPARIN SOD (PORCINE) 5000 UNITS/ML VIAL SC SCH ×2 (08:47→21:07)
[2019-01-31] MEDS: MIDODRINE 5 MG TAB PO SCH ×3 (08:47→16:31)
[2019-01-31] MEDS: MOM 30ML SUSPENSION UDC PO SCH ×2 (10:07→21:06)
[2019-01-31] MEDS: BRIMONIDINE 0.15% OPHTH SOLN 5 ML OU SCH ×2 (10:08→21:00)
[2019-01-31] MEDS: SENOKOT S TAB PO SCH ×2 (10:08→21:06)
--- NOTE | 2019-01-31 11:55 | IPNPDOC ---
Text Note Date of Service The patient was seen on 01/31/19. NOTE SUBJECTIVE: Ms. Mccrary is a 88 year old female seen on bedside rounds this [facility]. She is sitting at bedside chair eating breakfast, she just had some broth which she tolerated well. Denies abdominal pain, states she is having BM and passing flatus. She reports no pain overnight. She denies cp, sob nausea, vomiting, fevers, chills, sweating, and headaches. OBJECTIVE PHYSICAL EXAMINATION: VITAL SIGNS: Please see below. GENERAL: Patient is seen on bedside chair, eating breakfast. She states that she is comfortable and in no acute distress. She is awake, alert, oriented speaking in complete sentences. Hard of hearing in both ears. HEENT: Moist mucous membranes, EOMI, No JVD appreciated CARDIOVASCULAR: S1 S2 irregular rhythm, no murmurs, gallops, rubs appreciated RESPIRATORY: Clear to auscultation bilaterally, no wheezing, rales or rhonchi appreciated ABDOMINAL: Bowel sounds hypoactive in all 4 quadrants but improved. Nontender to palpation of abdomen, slightly distended but seems improved from yesterday. No rebound, rigidity, or guarding., no hepatosplenomegaly or masses appreciated. EXTREMITIES: No clubbing cyanosis or edema PSYCHOLOGICAL: Appropriate affect LABORATORY DATA, IMAGING STUDIES, MICROBIOLOGY: Please see below. IMAGING: - Abdomen/Pelvis X-ray: Nonspecific colonic distension. Transverse colon obstruction should be considered. - Abdomen/Pelvis CT: Gas-filled dilated colon with fecalization at the anastomotic site in the transverse colon. Findings may represent colonic obstruction. Mild dilatation of the small bowel loops likely secondary from colonic obstruction. DVT prophylaxis ordered?: Heparin ASSESSMENT AND PLAN: This is a 88 year old female that presented with abdominal pain and distention and found to have probable fecal impaction PROBLEMS: 1. Abdominal distension - likely 2/2 fecal impaction, less likely 2/2 Colonic obstruction - s/p NG, tolerating liquid diet well this morning, does not report continued abdominal pain, is having BM's and passing flatus, s/p barium enema yesterday - CT showed Gas-filled dilated colon with fecalization at the anastomotic site in the transverse colon. - Barium enema 01/30: 1. Single contrast gastrograph enema , contrast is only visualized to the level of the distal rectosigmoid colon. - FOBT positive - zofran for nausea - Surgery consulted, suspected fecal impaction-conservative mgmt for now - S/p enema yesterday with 6 BM so far - MOM and Senna initiated today 2. Chronic hypotension - a bit hypotensive, could be 2/2 dialysis, stable for now, continue to monitor - continue midodrine 3. ESRD - On HD sat, sat, saturday-dialyzed yesterday - will hold sensipar, renvela as this could contribute to GI obstruction - Nephrology consulted, appreciate their help 4. A fib - rate controlled with digoxin will continue - will keep on telemetry - currently no on anticoagulation or ASA; will have outpatient f/u with provider 5. Hypothyroid - Synthroid continued 6. Iron deficiency - will hold iron for now. 7. Hyponatremia -Na 137 today, normalized, c/w IVF D5/ NS 6. LLE chronic wound - Follows with wound care in [place] - Will perform simple dressing changes here with Santyl / Desitin - Will request wound care changes from outpatient provider and have follow up with wound care as an outpatient DISPOSITION: Patient is s/p NG tube, tolerating clear liquid diet well without abdominal pain. Diet advancements per surgery recommendations. Denies abdominal pain. Passing flatus and having BM's. CT of the abdomen and pelvis showed gas- filled dilated colon with fecalization at the anastomotic site in the transverse colon. Will keep NPO, IVF. FOBT positive. Started on MOM and Senna per sx. VS,Fishbone, I+O VS, Fishbone, I+O Laboratory Tests 01/31/19 06:16 Red Blood Count 2.63 L, Mean Corpuscular Volume 112.2 H, Mean Corpuscular Hemoglobin 36.9 H, Mean Corpuscular Hemoglobin Concent 32.9, Red Cell Distribution Width 14.2, Neutrophils (%) (Auto) 63.1, Lymphocytes (%) (Auto) 21.0 L, Monocytes (%) (Auto) 12.8 H, Eosinophils (%) (Auto) 2.3, Basophils (%) (Auto) 0.5, Neutrophils # (Auto) 2.5, Lymphocytes # (Auto) 0.8 L, Monocytes # (Auto) 0.5, Eosinophils # (Auto) 0.1, Basophils # (Auto) 0.0, Calcium Level 8.2 L Vital Signs Date Time Temp Pulse Resp B/P (MAP) Pulse Ox O2 Delivery O2 Flow Rate FiO2 01/31/19 08:30 98.2 90 18 92/42 (59) 95 01/28/19 19:34 Room Air I&O- Last 24 Hours up to 6 AM 01/31/19 05:59 Intake Total 930 ml Output Total 1000 ml Balance -70 ml GME ATTESTATION GME ATTESTATION My faculty preceptor for this patient encounter was physically present during the encounter and was fully available. All aspects of the patient interview, examination, medical decision making process, and medical care plan development were reviewed and approved by the faculty preceptor. The faculty preceptor is aware and concurs with the plan as stated in the body of this note and will attest to such by his/her cosignature. ATTENDING NOTE I, Romulo Lantigua, have independently examined this patient and performed my own physical exam, as well as reviewed the documentation and edited where necessary. I have discussed in detail with the resident / student the findings and plan of treatment as documented by the resident / student and edited their note. I agree with their findings and treatment plan and have edited their documentation. I will continue to follow the patient during this hospital stay. MAGED SEE DO Jan 31, 2019 11:55 ROMULO LANTIGUA MD Jan 31, 2019 12:59
--- NOTE | 2019-01-31 11:59 | REP ---
Examination Requested: Gastrograph enema Reason For Exam: Evaluate for colon obstruction The procedure was performed by NICKY Walsh, under the direct supervision of Dr. Ivy. The images were reviewed with Dr. Ivy. The chemical blender film shows no organomegaly, or pathological masses. The intestinal gas pattern is unremarkable. A 50/50 mixture of gastrograph and water was instilled into the colon, retrograde flow for a single contrast enema . Gastrograph is visualized to the rectosigmoid colon. At this point there was contrast leaking around the rectal balloon, and would not travel further retrograde into the colon.. Therefore, the procedure was terminated Impression: 1. Single contrast gastrograph enema , contrast is only visualized to the level of the distal rectosigmoid colon. Fluoroscopic exposure time is 1 minute. Fluoroscopic images are performed with last image hold technology. These images require no additional radiation. Reviewed by NICKY Marie 01/30/2019 03:53 P Electronically Signed by Aric Ivy MD 01/31/2019 11:50 A
--- NOTE | 2019-01-31 12:37 | IPN ---
DATE OF SERVICE: 01/31/2019 SUBJECTIVE: The patient was seen and examined at the bedside today morning. She is sitting in the sofa. She is tolerating the liquid diet now. She denies any more abdominal pain. She was dialyzed yesterday. She tolerated the hemodialysis procedure well, 1 liter of fluid was removed. The patient continues to be on gentle intravenous (IV) fluid hydration. OBJECTIVE: Vital signs: Temperature is 98.2 degrees Fahrenheit, blood pressure 92/42, pulse is 90, respiratory rate of 18, saturating 95% on room air. Intake and output: There is no urine output recorded. Ultrafiltration with hemodialysis was 1 liter. Weight in the bed scale is not available. PHYSICAL EXAM: General: The patient is awake, alert, oriented times three, sitting up in the sofa, no apparent distress. Head and neck exam: Extraocular muscles intact. Pupils equally round and reactive to light. She is very hard of hearing Cardiovascular: S1, S2. Regular rate. Trace edema of the bilateral lower extremities. Respiratory: Chest is clear to auscultation bilaterally. Bilateral equal air entry. No rales or rhonchi. Abdomen: Soft, obese, positive bowel sounds. Nontender. No organomegaly. Musculoskeletal: The patient has a small ulcer on the left leg, otherwise no clubbing or cyanosis. WEAPONS MECHANIC: No focal deficit. Power is 5/5 in bilateral upper extremities. Arteriovenous (AV) access: She has a left upper arm AV graft with positive thrill and bruit. LAB REVIEW: CBC showed WBC 3.9, hemoglobin 9.7, platelets are 171. BMP showed sodium 137, potassium 3.7, chloride 104, bicarbonate 23, BUN 17. Creatinine is 2.4. CURRENT INPATIENT MEDICATIONS: The patient's medications were all reviewed by me. I have stopped the IV fluids now. The patient is tolerating the liquid diet. No other change in the medications today as compared with yesterday. ASSESSMENT AND PLAN: 1. End-stage renal disease on hemodialysis. The patient's regular dialysis days are Saturday, Saturday, Saturday. She was dialyzed yesterday. Next hemodialysis will be on Saturday if the patient is still in the hospital. 2. Colonic obstruction. Patient is symptomatically better. She is having bowel movements. She is tolerating the liquid diet. She has been started on bowel regimen . No more Renvela for this patient. 3. Chronic kidney disease, mineral bone disease. I am going to check the phosphorus level, and depending upon the phosphorus level, I would start her on another binder. Renvela causes constipation. I would avoid using Renvela again. 4. Anemia in end-stage renal disease. Hemoglobin is 9.7. The patient was given a dose of Aranesp with dialysis this week.
[2019-01-31 12:44] VITALS: BP 88/42
[2019-01-31 13:38] LABS: PHOSPHORUS LEVEL 2.5 MG/DL (2.5-4.9)
[2019-01-31] MEDS ORDERED: DIAPER RELIEF PASTE (DESITIN) 60GM TOP SCH (13:45)
[2019-01-31 14:00] VITALS: BP 102/51
[2019-01-31] MEDS: CARBAMIDE PEROXIDE 6.5% OTIC SOLN 15ML AU SCH ×2 (15:39→21:00)
--- NOTE | 2019-01-31 16:25 | REP ---
Supine abdomen single AP view: Comparison is 01/28/2019. There is moderate distension of large and small bowel loops are not nonspecific pattern. The distension of the ascending colon noted previously has decreased. There are surgical clips in the right upper quadrant, unchanged. Impression: Nonspecific bowel gas pattern. The ascending colon distension on the previous study has decreased. Electronically Signed by Aric Ivy MD 01/31/2019 04:16 P
[2019-01-31] MEDS: LATANOPROST 0.005% OPHTH SOLN 2.5 ML OD SCH (21:00)
[2019-01-31 22:00] VITALS: BP 90/51
[2019-02-01 06:00] VITALS: BP 88/47
[2019-02-01] MEDS ORDERED: LEVOTHYROXINE 25MCG TABLET (0.025MG) PO SCH (06:00)
[2019-02-01 06:22] LABS: BASO % 0.5 % (0.0-1.0); EOS # 0.1 10^3/uL (0.0-0.50); HEMATOCRIT 30.8 % (36.0-47.0); HEMOGLOBIN 10.1 g/dl (12.0-15.5); LYMPH % 22.3 % (24.0-44.0); MEAN CORPUSCULAR HGB CONC 32.8 g/dl (32.0-36.5); MEAN CORPUSCULAR VOLUME 112.8 fl (80.0-96.0); MONO # 0.5 10^3/uL (0.0-0.8); MONO % 12.1 % (0.0-5.0); NEUTROPHILS # 2.7 10^3/uL (1.8-7.7); NEUTROPHILS % 61.4 % (36.0-66.0); PLATELET COUNT, AUTOMATED 194 10^3/uL (150-450); RED BLOOD COUNT 2.73 10^6/uL (4.00-5.40); WHITE BLOOD COUNT 4.3 10^3/uL (4.0-10.0)
[2019-02-01 06:35] LABS: CALCIUM LEVEL 8.3 MG/DL (8.8-10.2); CREATININE FOR GFR 3.53 MG/DL (0.55-1.30); POTASSIUM SERUM 3.4 MEQ/L (3.5-5.1)
[2019-02-01] MEDS ORDERED: traMADol 50 MG TAB PO PRN (07:45)
[2019-02-01] MEDS ORDERED: CYCLOBENZAPRINE 5MG TABLET PO PRN (07:45)
[2019-02-01] MEDS ORDERED: POTASSIUM CHLORIDE 10 MEQ SR TABLET PO ONE (09:00)
[2019-02-01] MEDS ORDERED: FERROUS SULFATE 325MG TAB PO SCH (09:00)
[2019-02-01] MEDS ORDERED: MOM30SS2 PO (09:01)
[2019-02-01] MEDS ORDERED: SENN-52 PO (09:01)
--- NOTE | 2019-02-01 09:17 | IPNPDOC ---
Text Note Date of Service The patient was seen on 02/01/19. NOTE No acute events overnight. Denies abd pains. Tolerating clq diet, and had a few more BMs. VSSAF NAD abd - soft, much less distended, non tender, no rebound or guarding labs - below A) 88y/o female with abd distention and colonic ileus vs. partial obstruction that is resolved P) reg diet ambulate monitor output PT will follow as needed Skip Banuelos DO VS,Brittaney, I+O VS, Fishbone, I+O Laboratory Tests 02/01/19 05:40 Red Blood Count 2.73 L, Mean Corpuscular Volume 112.8 H, Mean Corpuscular Hemoglobin 37.0 H, Mean Corpuscular Hemoglobin Concent 32.8, Red Cell Distribution Width 14.4, Neutrophils (%) (Auto) 61.4, Lymphocytes (%) (Auto) 22.3 L, Monocytes (%) (Auto) 12.1 H, Eosinophils (%) (Auto) 3.0, Basophils (%) (Auto) 0.5, Neutrophils # (Auto) 2.7, Lymphocytes # (Auto) 1.0 L, Monocytes # (Auto) 0.5, Eosinophils # (Auto) 0.1, Basophils # (Auto) 0.0, Calcium Level 8.3 L Vital Signs Date Time Temp Pulse Resp B/P (MAP) Pulse Ox O2 Delivery O2 Flow Rate FiO2 02/01/19 06:00 97.2 79 20 88/47 (61) 94 01/28/19 19:34 Room Air I&O- Last 24 Hours up to 6 AM 02/01/19 06:00 Intake Total 1500 ml Output Total 0 ml Balance 1500 ml PAWEL BANUELOS DO Feb 01, 2019 09:16
[2019-02-01] MEDS: HEPARIN SOD (PORCINE) 5000 UNITS/ML VIAL SC SCH (09:47)
[2019-02-01] MEDS: SENOKOT S TAB PO SCH (09:47)
[2019-02-01] MEDS: MIDODRINE 5 MG TAB PO SCH ×2 (09:47→11:48)
[2019-02-01] MEDS: DIGOXIN 0.0625MG PER 1/2TABLET PO SCH (09:48)
[2019-02-01] MEDS: CARBAMIDE PEROXIDE 6.5% OTIC SOLN 15ML AU SCH (09:49)
[2019-02-01] MEDS: MOM 30ML SUSPENSION UDC PO SCH (09:49)
[2019-02-01] MEDS: BRIMONIDINE 0.15% OPHTH SOLN 5 ML OU SCH (09:49)
--- NOTE | 2019-02-01 11:37 | DS.PDOC ---
Discharge Summary General Date of Admission Jan 29, 2019 at 02:09 Date of Discharge 02/01/2019 Discharge Summary PROCEDURES PERFORMED DURING STAY: [None]. ADMITTING DIAGNOSES / DISCHARGE DIAGNOSES: Abdominal distension - likely 2/2 fecal impaction, less likely 2/2 Colonic obstruction Chronic hypotension ESRD on HD (MWF) A fib Hypothyroid Iron deficiency s/p Hyponatremia LLE chronic wound DVT prophylaxis COMPLICATIONS/CHIEF COMPLAINT: Abdominal distension and constipation HISTORY OF PRESENT ILLNESS: Patient is an 88-year-old female with a PMhx of ESRD on HD (MWF), A. fib (not on anticoagulation), Hypothyroidism, Chronic hypotension, CHRISTIANO, DM2, Gout, Glaucoma, Sensorineural hearing loss, OA who presented to the emergency room after hemodialysis because of abdominal distention and pain. Patient reported that she had not had a bowel movement in one week. Upon arrival to emergency room, patient had imaging that revealed gas-filled dilated colon with fecal and sensation at the anastomotic site in the transverse colon. Patient was admitted to hospitalist service for further evaluation and treatment and general surgery was called on consultation. HOSPITAL COURSE: Abdominal distension - likely 2/2 fecal impaction, less likely 2/2 Colonic obstruction - Clinically patient has noted significant improvement of her abdominal distention - She has been having regular bowel movements and has been tolerating her diet - Physical without any tenderness - CT showed Gas-filled dilated colon with fecalization at the anastomotic site in the transverse colon. - Barium enema 01/30: 1. Single contrast gastrograph enema , contrast is only visualized to the level of the distal rectosigmoid colon. - c/w Bowel regimen - Surgery on consultation Chronic hypotension - c/w midodrine ESRD on HD (MWF) - Nephrology on consultation A fib - c/w rate / rhythm control with digoxin - currently not on anticoagulation or ASA; will have outpatient f/u with provider Hypothyroid - c/w Levothyroxine Iron deficiency - Will resume iron pills on discharge s/p Hyponatremia LLE chronic wound - Follows with wound care in [place] - Will perform simple dressing changes here with Santyl / Desitin - Will have outpatient follow up in [place] DVT prophylaxis - c/w Heparin DISCHARGE MEDICATIONS: Please see below. ALLERGIES: Please see below. PHYSICAL EXAMINATION ON DISCHARGE: Vitals (See below) General: Lying in bed, no acute distress, comfortable, AAOx3 HEENT: NC, AT CVS: +S1S2 Lungs: no appreciable wheezing, rhonchi or rales Abdomen: Soft, mild distension, non-tender Extremities: - Edema, - Calf tenderness LABORATORY DATA: Please see below. ACTIVITY: [As tolerated]. DISCHARGE PLAN: Follow-up with Dr. Herman and Dr. Yu within 7 days Remain compliant with treatment plan and medications Return to the ER if you experience any problems DISPOSITION: Home DISCHARGE CONDITION: [Stable]. TIME SPENT ON DISCHARGE: 35 minutes Vital Signs/I&Os Vital Signs Date Time Temp Pulse Resp B/P (MAP) Pulse Ox O2 Delivery O2 Flow Rate FiO2 02/01/19 09:48 79 02/01/19 06:00 97.2 20 88/47 (61) 94 01/28/19 19:34 Room Air I&O- Last 24 Hours up to 6 AM 02/01/19 05:59 Intake Total 1860 ml Output Total 0 ml Balance 1860 ml Laboratory Data Labs 24H Laboratory Tests 2 02/01/19 05:40: Immature Granulocyte % (Auto) 0.7, White Blood Count 4.3, Red Blood Count 2.73L, Hemoglobin 10.1L, Hematocrit 30.8L, Mean Corpuscular Volume 112.8H, Mean Corpuscular Hemoglobin 37.0H, Mean Corpuscular Hemoglobin Concent 32.8, Red Cell Distribution Width 14.4, Platelet Count 194, Neutrophils (%) (Auto) 61.4, Lymphocytes (%) (Auto) 22.3L, Monocytes (%) (Auto) 12.1H, Eosinophils (%) (Auto) 3.0, Basophils (%) (Auto) 0.5, Neutrophils # (Auto) 2.7, Lymphocytes # (Auto) 1.0L, Monocytes # (Auto) 0.5, Eosinophils # (Auto) 0.1, Basophils # (Auto) 0.0, Nucleated Red Blood Cells % (auto) 0.0, Anion Gap 12, Glomerular Filtration Rate 13.0L, Blood Urea Nitrogen 23H, Creatinine 3.53H, Sodium Level 137, Potassium Level 3.4L, Chloride Level 103, Carbon Dioxide Level 22, Calcium Level 8.3L CBC/BMP Laboratory Tests 02/01/19 05:40 Red Blood Count 2.73 L, Mean Corpuscular Volume 112.8 H, Mean Corpuscular Hemoglobin 37.0 H, Mean Corpuscular Hemoglobin Concent 32.8, Red Cell Distribution Width 14.4, Neutrophils (%) (Auto) 61.4, Lymphocytes (%) (Auto) 22.3 L, Monocytes (%) (Auto) 12.1 H, Eosinophils (%) (Auto) 3.0, Basophils (%) (Auto) 0.5, Neutrophils # (Auto) 2.7, Lymphocytes # (Auto) 1.0 L, Monocytes # (Auto) 0.5, Eosinophils # (Auto) 0.1, Basophils # (Auto) 0.0, Calcium Level 8.3 L Discharge Medications Scheduled Brimonidine Tartrate (Alphagan P) 0.15% 5ML Drops, 1 DROP OU BID, (Reported) Cinacalcet (Sensipar) 30 Mg Tab, 30 MG PO 2XW, (Reported) SATURDAY/SATURDAY Digoxin (Digoxin) 125 Mcg Tablet, 62.5 MCG PO Q2D, (Reported) Ferrous Sulfate (Ferrous Sulfate) 325 Mg Tab, 325 MG PO DAILY, (Reported) Folic Acid/Vit B Complex and C (Sharri-Hillary Tablet) 0.8 Mg Tablet, 1 TAB PO DAILY, (Reported) Latanoprost (Xalatan) 0.005% 2.5ML Drops, 1 DROP OD QHS, (Reported) Levothyroxine Sodium (Synthroid) 25 Mcg Tab, 25 MCG PO DAILY, (Reported) Magnesium Hydroxide (Milk of Magnesia) 400 Mg/5 Ml Oral.susp, 30 ML PO BID Midodrine HCl (Midodrine HCl) 10 Mg Tab, 10 MG PO TID, (Reported) Ropinirole HCl (Ropinirole HCl) 0.25 Mg Tablet, 0.25 MG PO QHS, (Reported) Sennosides/Docusate Sodium (Senna Plus Tablet) 1 Each Tablet, 2 TAB PO BID Sevelamer Carbonate (Renvela) 800 Mg Tablet, 2,400 MG PO WM, (Reported) Sevelamer Carbonate (Renvela) 800 Mg Tablet, 800 MG PO DAILY, (Reported) WITH SNACKS Vit A/Vit C/Vit E/Zinc/Copper (Preservision Areds Softgel) 1 Each Capsule, 2 CAP PO DAILY, (Reported) Scheduled PRN Cyclobenzaprine HCl (Cyclobenzaprine HCl) 5 Mg Tablet, 5 MG PO TID PRN for MUSCLE SPASMS, (Reported) Tramadol HCl (Tramadol HCl) 50 Mg Tablet, 50 MG PO QHS PRN for PAIN, (Reported) Allergies Coded Allergies: Penicillins (Verified Allergy, Mild, RASH, 01/28/19) cefadroxil (Verified Allergy, Mild, RASH, 01/28/19) ramipril (Verified Allergy, Unknown, 01/28/19) JULIET LANTIGUA MD Feb 01, 2019 11:36
[2019-02-01] MEDS ORDERED: rOPINIRole 0.25 MG TAB(REQUIP) PO SCH (21:00)
== END 2019-02-01 13:00 | disposition home or self-care (01) | DRG 388 ==
LOC: M ED 19:32 → M ED INP 01-29 02:09 → M PCU 01-29 06:10 → M MSPAV 01-29 21:59
PROVIDERS: ADMIT Internal Medicine Nephrology; ATTEND Internal Medicine
DX: K56.609 Unspecified intestinal obstruction, unspecified as to partial versus complete obstruction (principal); N18.6 End stage renal disease; E87.1 Hypo-osmolality and hyponatremia; N25.81 Secondary hyperparathyroidism of renal origin; I13.2 Hypertensive heart and chronic kidney disease with heart failure and with stage 5 chronic kidney disease, or end stage renal disease; L97.929 Non-pressure chronic ulcer of unspecified part of left lower leg with unspecified severity; I48.91 Unspecified atrial fibrillation; I95.9 Hypotension, unspecified; E03.9 Hypothyroidism, unspecified; D50.9 Iron deficiency anemia, unspecified; K56.41 Fecal impaction; E11.9 Type 2 diabetes mellitus without complications; M10.9 Gout, unspecified; H40.9 Unspecified glaucoma; H90.5 Unspecified sensorineural hearing loss; M19.90 Unspecified osteoarthritis, unspecified site; Z79.899 Other long term (current) drug therapy; Z88.0 Allergy status to penicillin; Z88.8 Allergy status to other drugs, medicaments and biological substances; I50.9 Heart failure, unspecified; D63.1 Anemia in chronic kidney disease; F32.9 Major depressive disorder, single episode, unspecified; Z85.3 Personal history of malignant neoplasm of breast; Z90.11 Acquired absence of right breast and nipple; Z90.49 Acquired absence of other specified parts of digestive tract; Z90.710 Acquired absence of both cervix and uterus